=== PATIENT | female | born 1995 | race Caucasian/White ===

== ENCOUNTER 2019-09-30 18:29 | Emergency (ER) | payer OTHER, SELFPAY ==
[2019-09-30 18:31] VITALS: BP 127/77; PULSE 89; RESP 16; TEMP 36.3; O2SAT 97; BMI 32.0
--- NOTE | 2019-09-30 19:11 | CT_ITS ---
STUDY: CT ABDOMEN AND PELVIS WITHOUT CONTRAST REASON FOR EXAM: Female, 24 years old. LT FLANK PAIN RADIATION DOSAGE (If Supplied By Facility): CTDIvol = ( 12.87 ) mGy, DLP = ( 615.08 ) mGycm TECHNIQUE: Transaxial images were obtained from the dome of the diaphragm to the symphysis pubis without oral contrast, and without intravenous contrast. Sagittal and coronal images were reconstructed. Individualized dose optimization techniques were used for this CT. COMPARISON: None. FINDINGS: The visualized lung bases are unremarkable. The visualized portions of the heart are within normal limits. Normal liver. Normal gallbladder and extrahepatic biliary system. Normal spleen. Normal pancreas. Normal bilateral adrenal glands. Normal right kidney. 4 mm stone in the proximal left ureter with changes of mild acute obstructive uropathy. Multiple punctate nonobstructing left renal stones. Normal visualized stomach. Normal small intestine. Normal colon. The appendix is visualized and appears normal. Normal abdominal aorta. Normal inferior vena cava. Normal retroperitoneum. Normal urinary bladder. Normal abdominal wall. Normal osseous structures. CT/Abdomen/Pelvis without Cont IMPRESSION: 4 mm stone in the proximal left ureter with changes of mild acute obstructive uropathy. Electronically Signed: Lai Valle MD at 20:01 EDT Tel , Service support ,
[2019-09-30 19:42] LABS: Mucous, Urine 0 SEEN /hpf (<or=2+)
[2019-09-30 19:43] LABS: Color, Urine Yellow (Yellow); Glucose, Dipstick Normal (Normal); Leukocyte Esterase-Dipstick Negative /ul (Negative); Nitrite-Dipstick Negative (Negative); Occult Blood-Urine 150 /ul (Negative); Protein-Dipstick 15 mg/dl (Negative); Specific Gravity, Urine 1.025 (1.002-1.030); Urine Bilirubin Dipstick Negative (Negative); Urine Clarity Sl. Cloudy (Clear); Urine Urobilinogen Normal (Normal)
[2019-09-30 19:46] LABS: Ketone-Dipstick 150 mg/dl (Negative)
[2019-09-30 19:50] LABS: Bacteria 1+ /hpf (None Seen)
[2019-09-30 19:51] LABS: Red Blood Cells-Urine 10-25 SEEN /hpf (0-5); Squamous Epithelial Cells - UA 0-5 SEEN /hpf (5-10); White Blood Cells 0-5 SEEN /hpf (0-5)
--- NOTE | 2019-09-30 21:08 | ED.VIS.GEN ---
History of Present Illness Chief Complaint: Flank Pain Informant: Patient Onset: Today Context: Sudden Onset Timing: Continuous, Waxes and wanes Quality: Pain Location: Left flank radiating anteriorly Current Severity: Mild Maximum Severity: Severe Worsened by: Nothing Relieved by: Nothing Associated Symptoms: Mild nausea with frequency and urgency Narrative: Is a 24-year-old female who was last normal menstrual cycle was 11 days ago. She presents with acute left flank pain that radiates anteriorly. She has no history of renal ureterolithiasis. Does report mild nausea. She denies fever, chills night sweats. She does report frequency and urgency. She denies dysuria or hematuria. She denies vomiting diarrhea. She denies cardiac respiratory symptoms. There is no history of trauma. She denies allergy to pain medicines. She does report allergy to sulfa. She declined pain medicine because the pain is only a 1 or 2. Prior similar symptoms: No Recent Illness/Hospitalization: No - Past Medical History (1) No significant past medical history Status: Acute Past Medical History - Allergies and Home Meds Allergies/Adverse Reactions: Allergies Sulfa (Sulfonamide Antibiotics) Adverse Reaction (Verified 09/30/19 18:31) Upset Stomach Primary Care Physician: Care Physician,No Primary [Primary Care Provider] - Surgical History: no surgical history Lives: Spouse/ Significant Other Smoking Status: Never smoker Alcohol: Rare Drugs: None Review of Systems General: Denies: Chills, Fever, Sweats ENT: Denies: Rhinorrhea, Sore throat Cardiovascular: Denies: Chest pain, Palpitations Respiratory: Denies: Dyspnea, Cough, Dyspnea on exertion Gastrointestinal: Reports: Abdominal pain, Nausea. Denies: Vomiting, Diarrhea, Constipation, Melena, Hematochezia Genitourinary: Reports: - - Urgency. Denies: Dysuria, Hematuria, Frequency Musculoskeletal: Reports: Back pain. Denies: Myalgias, Arthralgias, Neck pain, Swelling, Extremity Pain Skin: Denies: Rash, Wounds Neurological: Denies: Headache, Numbness Hematologic: Denies: Easy bruising, Easy bleeding Physical Exam Vital Signs/Narrative: Vital Signs Temp Pulse Resp BP Pulse Ox 09/30/19 18:31 97.4 F L 89 16 127/77 H 97 Inital Vital Signs reviewed: Yes General: Well nourished, Well developed, No Acute Distress Head: Normocephalic, Atraumatic Eyes: Perrl, EOMI ENT: Moist mucous membranes, No rhinorrhea Neck: Supple, Nontender, No lymphadenopathy, No JVD Cardiovascular: Regular rate, Regular rhythm, No murmurs, Normal S1, Normal S2 Respiratory: No distress, CTA bilaterally, Chest nontender Abdomen: Soft, Nontender, Nondistended, Normal bowel sounds. Negative for: No masses Back: Nontender, Normal Inspection. Negative for: CVA tenderness Extremities: Nontender, No edema Skin: Normal color, No rash Neurological: Alert, Oriented x3, Cranial nerves II-XII grossly intact, Normal Strength, Normal Sensation Psychological: Normal affect, Normal Mood Diagnostic/Tx/Re-eval Impressions Abdomen/Pelvis CT 09/30/19 19:11 IMPRESSION: 4 mm stone in the proximal left ureter with changes of mild acute obstructive uropathy. Electronically Signed: Lai Valle MD at 20:01 EDT Tel , Service support , 09/30/19 19:11 Abdomen/Pelvis without Cont [CT] Stat Laboratory Results 09/30/19 18:41 Urine Color Yellow Urine Clarity Sl. Cloudy Urine pH 6.0 Ur Specific [place] 1.025 Urine Protein 15 H Urine Glucose (UA) Normal Urine Ketones 150 H Urine Occult Blood 150 H Urine Nitrite Negative Urine Bilirubin Negative Urine Urobilinogen Normal Ur Leukocyte Esterase Negative Urine RBC 10-25 SEEN Urine WBC 0-5 SEEN Ur Squamous Epith Cells 0-5 SEEN Urine Bacteria 1+ Urine Mucus 0 SEEN She does have an obstructing 4 mm proximal left ureteral stone. Urine reveals bacteria without pyuria. There is microscopic hematuria. Culture was sent and patient received a dose of Rocephin and discharged with prescription for cephalexin. She was referred to Dr. Aly who is on-call for urology. - Medical Decision Making Presents with abrupt onset of left flank pain. Need to assess for obstructing ureteral stone, large renal stone, urinary tract infection versus other abdominal etiology. Patient declined pain medicine. Because she has bacteria she was given a dose of Rocephin and urine culture was sent. She was discharged with prescription for cephalexin. ED Disposition - Plan for ED Patient: Disposition: Home or Assisted Living Diagnosis: Calculus of proximal left ureter, Hydronephrosis of left kidney, Bacteriuria Instructions: ED Renal Stone w Colic Prescriptions: Cephalexin [Keflex] 500 mg PO 4X/DAY #20 cap Transmission Status: Pending to [id number] Referrals: Care Physician,No Primary [Primary Care Provider] - Magalis Aly MD [STAFF PHYSICIAN] - 3-5 Days Additional Instructions: Your pain returns take 4 ibuprofen tablets every 8 hours. If you develop a temperature greater than 100 and or have shaking chills return to the emergency department immediately
[2019-09-30 21:14] VITALS: BP 125/77; PULSE 75; RESP 18; O2SAT 97
[2019-09-30] MEDS: Ceftriaxone 1 GM/50 ML BAG IV (21:20)
== END 2019-09-30 22:00 | disposition home or self-care (01) ==
PROVIDERS: Emergency Provider Emergency Medicine
DX: N13.2 Hydronephrosis with renal and ureteral calculous obstruction (principal); R82.71 Bacteriuria; R31.29 Other microscopic hematuria; Z88.2 Allergy status to sulfonamides
CPT/HCPCS: 74176; 81001; 87086; 87088; 99283; J7050; A4216

== ENCOUNTER → 2019-11-11 11:18 | Outpatient (CLI) | payer OTHER, SELFPAY ==
--- NOTE | 2019-11-11 11:23 | US_ITS ---
STUDY: RENAL ULTRASOUND - COMPLETE REASON FOR EXAM: Female, 24 years old. Flank pain TECHNIQUE: Ultrasound evaluation of the kidneys was performed with real-time and static zheng-scale imaging. COMPARISON: None. FINDINGS: RIGHT KIDNEY: Normal location of the right kidney, which is normal in size. The right kidney measures 10.6 x 4.5 x 3.8 cm. There is a normal cortex of the right kidney. The renal cortex measures 1.1 cm. There is no right renal mass or cyst. There are no right renal calculi. There is no right hydronephrosis. DISTAL RIGHT URETER: There is non-visualization of the distal right ureter. There is no demonstrated right ureterovesical junction calculus. There is a visualized right ureteral jet. LEFT KIDNEY: Normal location of the left kidney, which is normal in size. The left kidney measures 10.4 x 5.1 x 4.2 cm. There is a normal cortex of the left kidney. The renal cortex measures 1.3 cm. There is no left renal mass or cyst. There are no left renal calculi. There is an extra-renal pelvis of the left kidney. There is no distention of the renal calyces. DISTAL LEFT URETER: There is non-visualization of the distal left ureter. There is no demonstrated left ureterovesical junction calculus. There is a visualized left ureteral jet. AORTA: There is no elongation or tortuosity of the abdominal aorta. I.V.C.: The IVC is patent. BLADDER: The bladder is incompletely distended US/Kidney and Bladder IMPRESSION: No suspicious sonographic findings, incidental note is made of an extrarenal pelvis of the left kidney Electronically Signed: Anthony Thomas MD at 12:14 EDT , Service support ,
== END ==
PROVIDERS: Referring Provider Urology; Visit Provider Urology
DX: N20.0 Calculus of kidney (principal)
CPT/HCPCS: 76770

== ENCOUNTER 2019-11-29 16:14 | Emergency (ER) | payer OTHER, SELFPAY ==
[2019-11-29 16:15] VITALS: BP 152/94; PULSE 79; RESP 18; TEMP 36.9; O2SAT 98; BMI 32.7
[2019-11-29 16:42] LABS: Mucous, Urine 0 SEEN /hpf (<or=2+)
[2019-11-29 16:45] LABS: Color, Urine Yellow (Yellow); Glucose, Dipstick Normal (Normal); Ketone-Dipstick Negative (Negative); Leukocyte Esterase-Dipstick 25 /ul (Negative); Nitrite-Dipstick Negative (Negative); Occult Blood-Urine 250 /ul (Negative); Protein-Dipstick 30 mg/dl (Negative); Specific Gravity, Urine 1.015 (1.002-1.030); Urine Bilirubin Dipstick Negative (Negative); Urine Clarity Cloudy (Clear); Urine Urobilinogen Normal (Normal)
[2019-11-29 16:51] LABS: Bacteria 1+ /hpf (None Seen); Red Blood Cells-Urine > 100 SEEN /hpf (0-5); Squamous Epithelial Cells - UA 5-10 SEEN /hpf (5-10); White Blood Cells 5-10 SEEN /hpf (0-5)
--- NOTE | 2019-11-29 17:55 | US_ITS ---
STUDY: RENAL ULTRASOUND - COMPLETE REASON FOR EXAM: Female, 24 years old. FLANK PAIN, HX OF KIDNEY STONES TECHNIQUE: Ultrasound evaluation of the kidneys was performed with real-time and static zheng-scale imaging. COMPARISON: Previous study of 11/11/2019 FINDINGS: RIGHT KIDNEY: Normal location of the right kidney, which is normal in size. The right kidney measures 11.1 x 4.0 x 4.1 cm. There is a normal cortex of the right kidney. The renal cortex measures 1.1 cm. There is no right renal mass or cyst. There are no right renal calculi. There is no right hydronephrosis. DISTAL RIGHT URETER: There is non-visualization of the distal right ureter. There is no demonstrated right ureterovesical junction calculus. There is a visualized right ureteral jet. LEFT KIDNEY: Normal location of the left kidney, which is normal in size. The left kidney measures 11.4 x 4.8 x 4.4 cm. There is a normal cortex of the left kidney. The renal cortex measures 1.3 cm. There is no left renal mass or cyst. There are no left renal calculi. There is an extra-renal pelvis of the left kidney. There is no distention of the renal calyces. DISTAL LEFT URETER: There is dilatation of the proximal left ureter. There is non-visualization of the distal left ureter. There is no demonstrated left ureterovesical junction calculus. There is a visualized left ureteral jet. BLADDER: The distended urinary bladder has a volume of 191 ml. There is a normal wall thickness of the distended urinary bladder. Bladder wall thickness is 1.8 mm. There is no demonstrated mass within the urinary bladder. There are no demonstrated bladder calculi. US/Kidney and Bladder IMPRESSION: There is mild dilatation of a left extrarenal pelvis. There is dilatation of the proximal left ureter. The distal left ureter was not visualized. The right kidney appears normal. If clinically indicated, CT of the abdomen and pelvis without contrast may be helpful for further evaluation. Electronically Signed: Mert Ashton MD at 19:17 EDT , Service support ,
[2019-11-29] MEDS: 0.9% Normal Saline 1,000 ML 1000 ML IV (18:19)
[2019-11-29] MEDS: Ketorolac 30 MG/ML Syringe IV (18:19)
[2019-11-29 18:32] LABS: Absolute Lymphocyte Count 1.19 X10^3/uL (0.83-4.51); Absolute Neutrophil Count 10.6 X10^3/uL (2.0-7.7); Basophil# 0.04 X10^3/uL; Basophil% 0.3 % (0-1); Eosinophil# 0.06 X10^3/uL; Eosinophils% 0.5 % (0-5); Hematocrit 44.7 % (37-47); Hemoglobin 14.6 g/dL (12.0-15.0); Lymphocyte # 1.19 X10^3/ul (4.0); Lymphocyte % 9.1 % (19-41); Mean Corp Hgb Conc 32.7 g/dL (32-36); Mean Corpuscular Hgb 27.4 pg (27.0-32.0); Mean Corpuscular Volume 83.9 fL (81-99); Mean Platelet Vol. 8.9 fl (6.2-12.0); Monocyte# 1.08 X10^3/uL; Monocyte% 8.3 % (0-10); NRBC Flagged by Analyzer 0 % (0-5); Neutrophil # 10.62 X10^3/uL (2.7-7.7); Neutrophil % 81.4 % (47-70); Platelet Count 326 K/mm3 (150-450); RBC Distribution Width SD 42.4 fl (35.1-43.9); Red Blood Count 5.33 M/mm3 (4.2-5.4)
[2019-11-29 18:41] LABS: Anion Gap 6 (5-15); BUN 12 mg/dL (7-18); BUN/Creat Ratio 11.4 RATIO (10-20); Calcium,Total 9.1 mg/dL (8.5-10.1); Chloride 107 mmol/L (98-107); Creatinine, Serum 1.05 mg/dL (0.55-1.02); EST Glomerular Filtration Rate 69 mL/min (>60); Est Glom Filt Rate - Afr Amer 83 mL/min (>60); Estimated Creatinine Clearance 68.93 ml/min; Glucose 85 mg/dL (74-106); Potassium 3.3 mmol/L (3.5-5.1); Sodium Level 142 mmol/L (136-145)
[2019-11-29 18:46] LABS: hCG Titer Quant., Serum < 1 mIU/mL (1-3)
--- NOTE | 2019-11-29 19:00 | RAD_ITS ---
STUDY: X-RAY - ABDOMEN/PELVIS REASON FOR EXAM: Female, 24 years old. left flank pain, hx kidney stones in the past TECHNIQUE: Two AP supine views of the abdomen and pelvis. COMPARISON: None. FINDINGS: Normal visualized lung bases. There is an unremarkable bowel gas pattern. There is no demonstrated free abdominal air. The visualized liver, spleen and kidneys are grossly normal in size and morphology. There is an irregularly margined calcification of the mid left pelvis measuring 4.4 mm which may represent distal left ureterolithiasis. Normal visualized osseous structures. RAD/Abdomen Single View (Portable) IMPRESSION: 4.4 mm irregular margin calcification of the mid left pelvis which may represent distal left ureterolithiasis. There is no evidence of ileus or obstruction. Electronically Signed: Mert Ashton MD at 19:17 EDT , Service support ,
--- NOTE | 2019-11-29 19:57 | ED.DCSUM_ITS ---
- ER Visit Summary Date of Service: 11/29/19 Chief Complaint: Left flank pain History of Present Illness: The patient is a 24 F who presents with left flank pain that became worse today. Patient states she has a history of kidney stones. Patient states that she had a CT scan done approximately 2 months ago which showed kidney stones. Patient states her pain is worse over her left flank. Patient states nothing makes it better or worse. Patient admits to an episode of nausea and vomiting today. Patient denies any fevers or chills. Patient admits to some hematuria but denies any dysuria. Physical Examination: Vital signs are stable. Patient is afebrile. Patient is in no acute distress. Oral mucosa is pink and moist. Neck is supple. Trachea is midline. There is no JVD noted. Heart was regular rate and rhythm. Lungs are clear and equal bilaterally. Abdomen is soft. Bowel sounds are normal. There is mild left CVA tenderness. There is no rebound or guarding noted. Skin is warm dry. Cranial nerves II through XII are intact. There are no focal motor or sensory deficits noted. Extremities are intact. There is no calf tenderness or edema. Test Results: CBC shows a mild leukocytosis of 13.0. Basic metabolic profile was essentially within normal limits. Urinalysis shows occult blood of 250 with greater than 100 red blood cells. There were 5-10 white blood cells and 5-10 epithelial cells. KUB of the abdomen was obtained. There is approximately 4.4 mm calcification in the left mid pelvis. Ultrasound of the kidney and bladder was obtained. There is left hydroureter and hydronephrosis. These were interpreted by the radiologist and reviewed by myself. Emergency Department Course and Treatment: Patient was given IV fluids. Patient was given a dose of Toradol here. Patient was feeling better on reevaluation. Patient was advised of her findings. Patient was instructed drink plenty of fluids. Patient was given a prescription for short course of [place] to take as needed. Patient was instructed to follow-up with her primary care physician and urologist in 5 to 7 days. Patient understood and was agreeable with the plan. All questions were answered. Disposition: Discharge home Impression: Left distal ureteral calculus This note was generated with [employer] dictation software. It may contain incorrect words, spelling, and punctuation that were not noted in review of the chart prior to signing ED Disposition - Plan for ED Patient: Disposition: Home or Assisted Living Diagnosis: Calculus of distal left ureter Instructions: ED Renal Stone w Colic Prescriptions: Hydrocodone Bitart/Apap 5-325 [[place] 5MG-325MG] 1 tab PO Q6H PRN PRN 3 Days #10 tab PRN Reason: Pain Prescription Printed Referrals: Magalis Aly MD [STAFF PHYSICIAN] -
[2019-11-29 20:17] VITALS: BP 105/88; PULSE 74; RESP 16; O2SAT 99
== END 2019-11-29 20:18 | disposition home or self-care (01) ==
PROVIDERS: Emergency Provider Emergency Medicine
DX: N20.2 Calculus of kidney with calculus of ureter (principal); Z87.442 Personal history of urinary calculi
CPT/HCPCS: 74018; 76770; 80048; 81001; 84702; 85025; 96374; 99283; J7030; A4216

== ENCOUNTER 2019-12-28 05:52 | Day surgery (SDC) | payer OTHER, SELFPAY ==
[2019-12-28 06:20] VITALS: BP 112/67; PULSE 77; RESP 16; TEMP 37.4; O2SAT 99; BMI 32.4
[2019-12-28 06:22] LABS: Internal QC Validated? YES +Cl - CLEAR BKGD; Pregnancy, Urine Negative Negative
[2019-12-28] MEDS: Lactated Ringers 1,000 ML 100 ML IV ×2 (06:47→08:29)
[2019-12-28] MEDS: Lubricating Jelly 60 GM Tube 30 GM TOPICAL (07:30)
[2019-12-28] MEDS: Cefazolin 2 GM in 0.9% Normal Saline 100 ML IV (07:30)
[2019-12-28 08:20] VITALS: BP 112/67; BP 114/77; PULSE 83; RESP 18; TEMP 36.9; O2SAT 93
--- NOTE | 2019-12-28 08:29 | DCINST_ITS ---
Discharge Diet: No Restrictions Discharge Activity: May not drive while taking narcotic pain medications. Call your doctor if you observe: Fever of 101 or Higher, Inability to urinate, Inability to have a bowel movement, Uncontrolled pain Allergies/Adverse Reactions: Allergies Sulfa (Sulfonamide Antibiotics) Adverse Reaction (Verified 12/21/19 12:30) Upset Stomach Medications to take at Discharge Multivit-Min/Iron/Folic Acid/K [Multi For Her Softgel] 1 ea PO DAILY 09/30/19 Magnesium Amino Acid Chelate [Magnesium] 200 mg PO DAILY 12/21/19 Cephalexin [Keflex] 500 mg PO Q12 3 Days #6 cap 12/28/19 Oxycodone HCl/Acetaminophen [Percocet 5/325] 2 tab PO Q8H PRN PRN 7 Days #20 tab 12/28/19 Phenazopyridine HCl [Pyridium] 200 mg PO TID PRN PRN 7 Days #30 tab 12/28/19 Primary Care Physician: Care Physician,No Primary [Primary Care Provider] - Test Results: Test results from this visit will be discussed in further detail at your follow- up appointment, if applicable. Please Follow Up With: Magalis Aly MD When: call for appt for stent removal Proposed Discharge Date: 12/28/19
[2019-12-28 08:30] VITALS: BP 109/78; BP 112/67; PULSE 78; RESP 16; O2SAT 96
--- NOTE | 2019-12-28 08:31 | OP.PCM_ITS ---
Problem List (1) Ureteral stone with hydronephrosis Status: Acute Report of Operation Date of Procedure: 12/28/19 Pre-Operative Diagnosis: Left ureteral calculus with hydronephrosis Post-Operative Diagnosis: Same Surgery/Procedure Performed:: Cystoscopy, left ureteroscopy, holmium laser lithotripsy, stone basket extraction, left ureteral stent insertion Type of Anesthesia:: General Specimen's removed: Stone fragments sent for analysis Description of Procedure: The patient is a 24-year-old female who was diagnosed with a left ureteral calculus several weeks ago. On repeat imaging there was resolution of her hydronephrosis and her pain resolved. The pain subsequently returned and repeat imaging was obtained revealing that the stone had moved distally but not passed. Informed consent was obtained and the patient desired to proceed with surgical intervention. Discussion was had regarding the risks of COVID-19. Patient was taken to the operating room and placed on the operating room table. Anesthesia monitored the head, neck, airway, IV access and vital signs throughout the case. Once anesthesia was appropriately administered, the patient was placed into dorsal lithotomy position was prepped and draped in usual sterile fashion. A cystourethroscopy through the urethra under direct visualization was performed. There were no masses, areas of erythema or lesions identified. There were no foreign bodies on the floor of the bladder. The left ureteral orifice was identified and intubated with a 0.035 Glidewire. I could feel the stone at the ureteral orifice and using the semirigid ureteroscope, the stone was visualized. I was unable to retrieve it with the basket and the laser was used to break the stone into small fragments several of which were retrieved with a basket and sent for analysis. The stone was much larger than anticipated given the findings on CT scan. I was able to scope past the area of the stone and retrieve one fragment, and no fragments remained in the distal ureter. At this time a 6 [place] 24 cm JJ stent was inserted over the Glidewire without difficulty. The patient's bladder was emptied and the case was terminated. The patient tolerated the procedure well and there were no complications. She was taken to the recovery room in good condition. Grafts/Implants Used: 6 x 24 JJ stent - Complications None - Admit VTE Documentation VTE Present on Admission: Yes VTE Mechan Device Prophylaxis: SCD's VTE Pharm Prophylaxis ordered?: No Reason prophylaxis not ordered:: Treatment Not Indicated
[2019-12-28 08:45] VITALS: BP 112/67; BP 121/77; PULSE 79; RESP 16; O2SAT 100
[2019-12-28 08:53] VITALS: BP 112/67; BP 118/78; PULSE 75; RESP 16; TEMP 36.6; O2SAT 99
[2019-12-28 10:33] VITALS: BP 112/67; BP 119/79; PULSE 81; RESP 18; TEMP 36.4; O2SAT 99
== END 2019-12-28 10:35 | disposition home or self-care (01) ==
LOC: SDC 05:52 → AC 05:52
PROVIDERS: Anesthesiology; Referring Provider Urology; Visit Provider Urology
PROC: 0TJ98ZZ Inspection of Ureter, Via Natural or Artificial Opening Endoscopic (ICD-10-PCS; CPT 52352; principal; 2019-12-28 07:20)
DX: N13.2 Hydronephrosis with renal and ureteral calculous obstruction (principal); Z11.59 Encounter for screening for other viral diseases
CPT/HCPCS: 52356; 76000; 81025; 82360; 87635; C9803; J7120; C2617; J2405; U0003

== ENCOUNTER 2020-05-15 15:16 | Emergency (ER) | payer BC, SELFPAY ==
[2020-05-15 15:18] VITALS: BP 120/73; PULSE 123; RESP 18; TEMP 36.6; O2SAT 99; BMI 32.5
--- NOTE | 2020-05-15 15:32 | CT_ITS ---
STUDY: CT ABDOMEN AND PELVIS WITHOUT CONTRAST REASON FOR EXAM: Female, 25 years old. LBP, LT FLANK PAIN X 5 DAYS. H/O [place] W/ STENT. and quot;POPPING and quot; SOUND RADIATION DOSAGE (If Supplied By Facility): CTDIvol = ( 15.31 ) mGy, DLP = ( 814.70 ) mGycm TECHNIQUE: Transaxial images were obtained from the dome of the diaphragm to the symphysis pubis without oral contrast, and without intravenous contrast. Sagittal and coronal images were reconstructed. Individualized dose optimization techniques were used for this CT. COMPARISON: None. FINDINGS: The visualized lung bases are unremarkable. The visualized portions of the heart are within normal limits. Normal liver. Normal gallbladder and extrahepatic biliary system. Normal spleen. Normal pancreas. Normal bilateral adrenal glands. Normal right kidney. There is mild prominence of the left renal pelvis with some stranding of surrounding fat but no renal or ureteral stone. Possibilities include recently passed stone or left-sided pyelonephritis. Normal visualized stomach. Normal small intestine. Normal colon. The appendix is visualized and appears normal. Normal abdominal aorta. Normal inferior vena cava. Normal retroperitoneum. Normal urinary bladder. Normal abdominal wall. Normal osseous structures. CT/Abdomen/Pelvis without Cont IMPRESSION: Suspect left-sided recently passed stone or pyelonephritis. No current renal or ureteral stone. Electronically Signed: Chadwick Buckner MD at 16:44 EST Tel , Service support ,
--- NOTE | 2020-05-15 15:32 | ED.DCSUM_ITS ---
History of Present Illness Chief Complaint: Back Narrative: This patient is a 25-year-old female who presents with lower back pain. This began 5 days ago. She states she was getting up off the ground and felt a pop in her lower back. She complains of midline lower back pain since that time. She then began to have some pain on her left flank. She was seen in urgent care. They checked her urine and said she was dehydrated and that it was possible she had either kidney stone or UTI. They put her on antibiotics and send off a culture which she does not yet know the results of. She also complains of some mild lower abdominal pain but is currently also on her menstrual period and attributes it to that. She has no dysuria frequency or urgency. She denies any fevers nausea vomiting or diarrhea. Past Medical History - Allergies and Home Meds Allergies/Adverse Reactions: Allergies Sulfa (Sulfonamide Antibiotics) Adverse Reaction (Verified 05/15/20 15:18) Upset Stomach Primary Care Physician: Care Physician,No Primary [Primary Care Provider] - Past Medical History: None Surgical History: no surgical history Smoking Status: Never smoker Review of Systems All systems negative except as indicated General: Denies: Fever Eyes: Denies: Visual changes - bilaterally ENT: Denies: Bilateral ear pain Cardiovascular: Denies: Chest pain Respiratory: Denies: Dyspnea Gastrointestinal: Reports: Abdominal pain. Denies: Nausea, Vomiting Musculoskeletal: Reports: Back pain. Denies: Extremity Pain Skin: Denies: Rash Neurological: Denies: Headache, Weakness, Parasthesia Hematologic: Denies: Easy bruising Allergy: Denies: Uticaria Physical Exam Vital Signs/Narrative: Vital Signs Temp Pulse Resp BP Pulse Ox 05/15/20 15:18 98 F 123 H 18 120/73 99 Inital Vital Signs reviewed: Yes General: Well nourished Head: Normocephalic Eyes: EOMI ENT: Moist mucous membranes Neck: Supple Cardiovascular: Regular rhythm, Tachycardia Respiratory: No distress, CTA bilaterally Abdomen: Soft, Nontender, Nondistended Back: - - Patient has midline lower lumbar tenderness she does not have CVA tenderness Skin: Normal color Neurological: Alert Psychological: Normal affect Diagnostic/Tx/Re-eval Impressions Abdomen/Pelvis CT 05/15/20 15:32 IMPRESSION: Suspect left-sided recently passed stone or pyelonephritis. No current renal or ureteral stone. Electronically Signed: Chadwick Buckner MD at 16:44 EST Tel , Service support , 05/15/20 15:32 Abdomen/Pelvis without Cont [CT] Stat Laboratory Results 05/15/20 05/15/20 05/15/20 15:42 15:55 15:55 WBC 11.3 H RBC 4.88 Hgb 12.9 Hct 39.5 MCV 80.9 L MCH 26.4 L MCHC 32.7 RDW Std Deviation 39.5 RDW Coeff of Haily 13.3 Plt Count 254 MPV 8.9 Immature Gran % (Auto) 0.300 Neut % (Auto) 77.4 H Lymph % (Auto) 8.3 L [place] % (Auto) 13.4 H Eos % (Auto) 0.2 Baso % (Auto) 0.4 Absolute Neuts (auto) 8.8 H Absolute Lymphs (auto) 0.94 Nucleated RBC % 0 Differential Comment Diff Path Review May foll Platelet Estimate ADEQUATE RBC Morphology NORM C+C Sodium 137 Potassium 3.3 L Chloride 105 Carbon Dioxide 24.0 Anion Gap 8 BUN 8 Creatinine 0.74 Estim Creat Clear Calc 96.97 Est GFR (MDRD) Af Amer 123 Est GFR (MDRD) Non-Af 102 BUN/Creatinine Ratio 10.8 Glucose 103 Calcium 8.7 Urine Color Yellow Urine Clarity Sl. Cloudy Urine pH 6.5 Ur Specific [place] 1.010 Urine Protein 30 H Urine Glucose (UA) Normal Urine Ketones 5 H Urine Occult Blood 250 H Urine Nitrite Negative Urine Bilirubin Negative Urine Urobilinogen 1 H Ur Leukocyte Esterase 100 H Urine RBC 0-5 SEEN Urine WBC 5-10 SEEN Ur Squamous Epith Cells 0-5 SEEN Urine Bacteria RARE Urine Mucus 0 SEEN Urine Test Negative - Medical Decision Making UA shows 5-10 WBCs. Mild leukocytosis at 11.3. Renal function is normal. CT of the abdomen and pelvis was obtained. This shows mild prominence of the left renal pelvis and some fat stranding. The differential would include pyelonephritis or recently passed stone. Patient is currently on oral antibiotics and had a urine culture sent already from her previous urgent care visit. At this time she was advised just to continue her oral antibiotics and follow-up as an outpatient. No indication for hospitalization. No apparent surgical pathology. Does understand return for new or worsening symptoms. Patient discharged. ED Disposition - Plan for ED Patient: Disposition: Home or Assisted Living Diagnosis: Back pain, UTI (urinary tract infection) Instructions: ED Back Sprain/Strain, ED Bladder Infection, Female (Adult) Referrals: Care Physician,No Primary [Primary Care Provider] -
[2020-05-15 15:53] LABS: Mucous, Urine 0 SEEN /hpf (<or=2+)
[2020-05-15 15:58] LABS: Color, Urine Yellow (Yellow); Glucose, Dipstick Normal (Normal); Ketone-Dipstick 5 mg/dl (Negative); Leukocyte Esterase-Dipstick 100 /ul (Negative); Nitrite-Dipstick Negative (Negative); Occult Blood-Urine 250 /ul (Negative); Protein-Dipstick 30 mg/dl (Negative); Urine Bilirubin Dipstick Negative (Negative); Urine Clarity Sl. Cloudy (Clear); Urine Urobilinogen 1 mg/dl (Normal); Urine pH 6.5 (5.0 - 8.0)
[2020-05-15 16:04] LABS: White Blood Cells 5-10 SEEN /hpf (0-5)
[2020-05-15 16:05] LABS: Bacteria RARE /hpf (None Seen); Red Blood Cells-Urine 0-5 SEEN /hpf (0-5); Squamous Epithelial Cells - UA 0-5 SEEN /hpf (5-10)
[2020-05-15 16:06] LABS: Internal QC Validated? YES +Cl - CLEAR BKGD; Pregnancy, Urine Negative Negative
[2020-05-15 16:10] LABS: Absolute Lymphocyte Count 0.94 X10^3/uL (0.83-4.51); Absolute Neutrophil Count 8.8 X10^3/uL (2.0-7.7); Basophil# 0.04 X10^3/uL; Basophil% 0.4 % (0-1); Eosinophil# 0.02 X10^3/uL; Eosinophils% 0.2 % (0-5); Hematocrit 39.5 % (37-47); Hemoglobin 12.9 g/dL (12.0-15.0); Lymphocyte # 0.94 X10^3/ul (4.0); Lymphocyte % 8.3 % (19-41); Mean Corp Hgb Conc 32.7 g/dL (32-36); Mean Corpuscular Hgb 26.4 pg (27.0-32.0); Mean Corpuscular Volume 80.9 fL (81-99); Mean Platelet Vol. 8.9 fl (6.2-12.0); Monocyte# 1.51 X10^3/uL; Monocyte% 13.4 % (0-10); NRBC Flagged by Analyzer 0 % (0-5); Neutrophil # 8.75 X10^3/uL (2.7-7.7); Neutrophil % 77.4 % (47-70); POSITIVE DIFFERENTIAL YES; Platelet Count 254 K/mm3 (150-450); RBC Distribution Width CV 13.3 % (11.6-14.6); RBC Distribution Width SD 39.5 fl (35.1-43.9); Red Blood Count 4.88 M/mm3 (4.2-5.4); White Blood Count 11.3 K/mm3 (4.4-11.0)
[2020-05-15 16:18] LABS: Differential Indicated SCAN CRITERIA MET
[2020-05-15 16:27] LABS: Anion Gap 8 (5-15); BUN 8 mg/dL (7-18); BUN/Creat Ratio 10.8 RATIO (10-20); Calcium,Total 8.7 mg/dL (8.5-10.1); Chloride 105 mmol/L (98-107); Creatinine, Serum 0.74 mg/dL (0.55-1.02); EST Glomerular Filtration Rate 102 mL/min (>60); Est Glom Filt Rate - Afr Amer 123 mL/min (>60); Estimated Creatinine Clearance 96.97 ml/min; Glucose 103 mg/dL (74-106); Potassium 3.3 mmol/L (3.5-5.1); Sodium Level 137 mmol/L (136-145)
[2020-05-15 16:50] LABS: Platelet Estimate ADEQUATE (ADEQ); Red Cell Morphology NORM C+C NORMAL (NORM C&C)
[2020-05-15 17:09] VITALS: BP 127/83; PULSE 71; RESP 16; O2SAT 99
[2020-05-16 12:45] LABS: Pathologist Review Reviewed
== END 2020-05-15 17:09 | disposition home or self-care (01) ==
PROVIDERS: Emergency Provider Emergency Medicine
DX: M54.5 Low back pain (principal); N39.0 Urinary tract infection, site not specified
CPT/HCPCS: 74176; 80048; 81001; 81025; 85025; 99284

== ENCOUNTER → 2023-03-12 | Outpatient (CLI) | payer BC, SELFPAY ==
[2023-03-12 17:06] LABS: Absolute Lymphocyte Count 2.34 X10^3/uL (0.83-4.51); Absolute Neutrophil Count 5.5 X10^3/uL (2.0-7.7); Basophil# 0.07 X10^3/uL; Basophil% 0.8 % (0-1); Hematocrit 45.6 % (37-47); Hemoglobin 14.7 g/dL (12.0-15.0); Lymphocyte # 2.34 X10^3/ul (0.83-4.51); Lymphocyte % 27.5 % (19-41); Mean Corp Hgb Conc 32.2 g/dL (32-36); Mean Corpuscular Hgb 26.3 pg (27.0-32.0); Mean Corpuscular Volume 81.6 fL (81-99); Mean Platelet Vol. 9.1 fl (6.2-12.0); Monocyte# 0.58 X10^3/uL; Monocyte% 6.8 % (0-10); NRBC Flagged by Analyzer 0 % (0-5); Neutrophil # 5.48 X10^3/uL (2.7-7.7); Neutrophil % 64.5 % (47-70); Platelet Count 338 K/mm3 (150-450); RBC Distribution Width CV 13.3 % (11.6-14.6); RBC Distribution Width SD 38.8 fl (35.1-43.9); Red Blood Count 5.59 M/mm3 (4.2-5.4); White Blood Count 8.5 K/mm3 (4.4-11.0)
[2023-03-12 17:16] LABS: AST(SGOT) 19 U/L (15-37); Alanine Aminotransfer ALT/SGPT 25 U/L (13-56); Albumin, Serum 3.9 g/dL (3.2-5.0); Alkaline Phosphatase 78 U/L (45-117); Anion Gap 5 (5-15); BUN 12 mg/dL (7-18); BUN/Creat Ratio 14.7 RATIO (10-20); Calcium,Total 9.3 mg/dL (8.5-10.1); Chloride 104 mmol/L (98-107); Creatinine, Serum 0.82 mg/dL (0.55-1.02); EST Glomerular Filtration Rate 89 mL/min (>60); Est Glom Filt Rate - Afr Amer 108 mL/min (>60); Globulin 3.8 g/dL (2.2-4.2); Glucose 81 mg/dL (74-106); Potassium 4.1 mmol/L (3.5-5.1); Protein, Total 7.7 g/dL (6.4-8.2); Sodium Level 137 mmol/L (136-145)
[2023-03-12 17:42] LABS: T4 Free Direct 1.06 ng/dL (0.76-1.46); Thyroid Stim Hormone (TSH) 2.12 uIU/mL (0.358-3.74)
[2023-03-15 07:07] LABS: Thyroid Peroxidase AB 16 IU/mL (0-34)
== END | disposition home or self-care (01) ==
LOC: BIMLAB 15:17
PROVIDERS: PCP Internal Medicine; Referring Provider Internal Medicine; Visit Provider Internal Medicine
DX: E66.9 Obesity, unspecified (principal); E28.2 Polycystic ovarian syndrome; Z13.29 Encounter for screening for other suspected endocrine disorder
CPT/HCPCS: 36415; 80053; 84439; 84443; 85025; 86376

== ENCOUNTER → 2023-06-14 | Outpatient (CLI) | payer BC, SELFPAY ==
--- OUTSIDE RECORDS SUMMARY | 2023-06-14 11:10 | XMS RPT_ITS | CCD ---
Author Name Unknown Address [address] [place] [address] Organization [facility] Care Team Providers Care Director Of Nurses Registry Name Role Phone Luba Aguilar Unavailable Unavailable Deshaun Bro MD Primary Care Provider Deshaun Bro MD Primary Care Provider [phone] Unavailable Primary Care Provider Unavailabl e KATY GUILLEN Attending Unavailable DESHAUN BRO Primary Care Unavailable DESHAUN BRO Primary Care Unavailable VEERAMACDESTINEYENI, HOLLY Referring Unavailab le VEOLGA, ERLINALI Referring Unavailab DESHAUN Woodruff Primary Care Unavailable VEERAMARICARMEN, HOLLY Referring Unavailab DESHAUN Woodruff Primary Care Unavailable VEOLGA, HOLLY Attending Unavailab DESHAUN Woodruff Primary Care Unavailable DESHAUN BRO Primary Care Unavailable ALICIA REHMAN Referring Unavail able DESHAUN BRO Primary Care Unavailable ERIC WIGGINS Attending Unavailable ALICIA REHMAN Referring Unavail able DESHAUN BRO Primary Care Unavailable ALICIA REHMAN Attending Unavail able DESHAUN BRO Primary Care Unavailable KATY GUILLEN Referring Unavailable Allergies Allergy Classification Reported Allergen(s) Allergy Type Date of Onset Reaction(s) Facility (12 sources) Sulfonamides (Antibiotic); Translations: [SULFA (SULFONAMIDE ANTIBIOTICS)] Drug Intolerance 8 Vomiting [facility] Work Phone: Medications Current Medications Medication Drug Class(es) Dates Sig (Normalized) Sig (Original) amoxicillin 875 mg / clavulanate 125 mg oral tablet (1 source) Penicillin-class Antibacterial Start: 02-24-2022 End: 03-03-2022 take 1 tablet by mouth twice daily amoxicillin-clav ulanic acid (AUGMENTIN) 875-125 mg per tablet Take 1 tablet by mouth twice daily for 7 days. 14 tablet 0 02/24/2022 03/03/2022 Active Completed/Discontinued Medications Medication Drug Class(es) Dates Sig (Normalized) Sig (Original) Lactobacillus acidophilus (11 sources) Lactobacillus acidophilus (PROBIOTIC ORAL) Take by mouth. All natural probiotic Vital savannah 0 Active Problems Active Problems Problem Classification Problem Date Documented Date Episodic/Chronic Cardiac dysrhythmias (3 sources) Tachycardia; Translations: [Tachycardia, unspecified] Onset: 05-31-2022 Episodic Other endocrine disorders (10 sources) Polycystic ovary syndrome; Translations: [Polycystic ovarian syndrome] Onset: 03-19-2022 Chronic Other endocrine disorders (1 source) Polycystic ovarian syndrome; Translations: [PCOS (polycystic ovarian syndrome)] Onset: 03-19-2022 Chronic Other female genital disorders (2 sources) Abnormal uterine bleeding; Translations: [Other specified abnormal uterine and vaginal bleeding] Chronic Other female genital disorders (1 source) Abnormal uterine and vaginal bleeding, unspecified; Translations: [Abnormal uterine bleeding (AUB)] Onset: 02-11-2022 Chronic Other female genital disorders (1 source) History of gynecological disorder; Translations: [Personal history of other diseases of the female genital tract] Episodic Other nutritional; endocrine; and metabolic disorders (9 sources) Obesity; Translations: [Other obesity due to excess calories] Onset: 03-19-2022 Chronic Other nutritional; endocrine; and metabolic disorders (1 source) Other obesity due to excess calories; Translations: [Class 2 obesity due to excess calories without serious comorbidity with body mass index (BMI) of 35.0 to 35.9 in adult] Onset: 03-19-2022 Chronic Other nutritional; endocrine; and metabolic disorders (1 source) Body mass index (BMI) 35.0-35.9, adult; Translations: [Class 2 obesity due to excess calories without serious comorbidity with body mass index (BMI) of 35.0 to 35.9 in adult] Onset: 03-19-2022 Chronic Otitis media and related conditions (1 source) Acute left otitis media; Translations: [Otitis media, unspecified, left ear] Episodic Viral infection (1 source) Viral disease; Translations: [Viral infection, unspecified] Episodic Past or Other Problems Problem Classification Problem Date Documented Da te Episodic/Chronic Genitourinary symptoms and ill-defined conditions (1 source) Dysuria; Translations: [DYSURIA] Onset: 07-17-2016 Episodic Other screening for suspected conditions (not mental disorders or infectious disease) (3 sources) Increased testosterone level; Translations: [Other specified abnormal findings of blood chemistry] Onset: 02-11-2022 Episodic Results Test Name Value Interpretation Reference Range Facil ity Vital Signs Date Time Vital Sign Value Performing Clinician Rashard costa 05-31-2022 07:05-0500 Body weight 90.27 kg Katy Guillen PRESSURE TESTER.RACE RELATIONS PROFESSOR Work Phone: [facility] 05-31-2022 07:05-0500 Diastolic blood pressure 74 mm[Hg] Katy Guillen PRESSURE TESTER.RACE RELATIONS PROFESSOR Work Phone: [facility] 05-31-2022 07:05-0500 Heart rate 79 /min Katy Guillen PRESSURE TESTER.RACE RELATIONS PROFESSOR Work Phone: [facility] 05-31-2022 07:05-0500 Respiratory rate 16 /min Katy Guillen PRESSURE TESTER.RACE RELATIONS PROFESSOR Work Phone: [facility] 05-31-2022 07:05-0500 SaO2% (BldA) [Mass fraction] 100 % Katy Guillen PRESSURE TESTER.RACE RELATIONS PROFESSOR Work Phone: [facility] 05-31-2022 07:05-0500 Systolic blood pressure 118 mm[Hg] Ktay Guillen PRESSURE TESTER.RACE RELATIONS PROFESSOR Work Phone: [facility] 02-24-2022 09:39-0500 Body temperature 98.29 [degF] Marta Zabalay PA-C Work Phone: [facility] 02-24-2022 09:39-0500 Body weight 90.72 kg Marta Athy PA-C Work Phone: [facility] 02-24-2022 09:39-0500 Diastolic blood pressure 70 mm[Hg] Marta Athy PA-C Work Phone: [facility] 02-24-2022 09:39-0500 Heart rate 96 /min Marta Copoer PA-C Work Phone: [facility] 02-24-2022 09:39-0500 Respiratory rate 16 /min Marta YOUSIF-C Work Phone: [facility] 02-24-2022 09:39-0500 SaO2% (BldA) [Mass fraction] 98 % Marta YOUSIF-C Work Phone: [facility] 02-24-2022 09:39-0500 Systolic blood pressure 110 mm[Hg] Marta Cooper PA-C Work Phone: [facility] Encounters Encounter Date Encounter Type Care Provider Facility Start: 05-31-2022 End: 06-01-2022 ambulatory KATY GUILLEN Facility:[facility] Start: 05-31-2022 End: 05-31-2022 Office outpatient visit 15 minutes Katy Guillen APRN.RACE RELATIONS PROFESSOR Work Phone: [facility] [place] Procedures Date Procedure Procedure Detail Performing Clinician Start: 05-31-2022 Ecg routine ecg w/le ast 12 lds i&r only [facility] Provider Start: 02-11-2022 Us pelvic nonobstetr ic real-time image complete Alicia Holly MD Work Phone: Plan of Treatment Date Care Activity Detail Author Start: 12-16-2023 PAP TESTING PAP TESTING [facility] Start: 05-31-2022 End: 07-31-2022 CBC W Auto Differential panel - Blood CBC + DIFF Lab Routine Tachycardia Expected: 05/31/2022, Expires: 07/31/2022 [facility] Work Phone: Immunizations Immunization Date Immunization Notes Care Provider Fa jacque 11-27-2012 human papilloma viru s vaccine, quadrivalent Katy Guillen PRESSURE TESTER.RACE RELATIONS PROFESSOR Work Phone: [facility] Work Phone: 06-19-2012 hepatitis A vaccine, pediatric/adolescent dosage, 2 dose schedule Katy Guillen APRN.RACE RELATIONS PROFESSOR Work Phone: [facility] Work Phone: 06-19-2012 human papilloma viru s vaccine, quadrivalent Katy Guillen APRN.RACE RELATIONS PROFESSOR Work Phone: [facility] Work Phone: 06-19-2012 meningococcal polysaccharide (groups A, C, Y and W-135) diphtheria toxoid conjugate vaccine (MCV4P) Katy Guillen APRN.RACE RELATIONS PROFESSOR Work Phone: [facility] Work Phone: 11-04-2008 hepatitis A vaccine, pediatric/adolescent dosage, 2 dose schedule Katyelier Guillen APRN.RACE RELATIONS PROFESSOR Work Phone: [facility] Work Phone: 11-04-2008 meningococcal polysaccharide (groups A, C, Y and W-135) diphtheria toxoid conjugate vaccine (MCV4P) Katy Guillen APRN.RACE RELATIONS PROFESSOR Work Phone: [facility] Work Phone: 11-04-2008 tetanus toxoid, redu brayan diphtheria toxoid, and acellular pertussis vaccine, adsorbed Katy Guillen APRN.RACE RELATIONS PROFESSOR Work Phone: [facility] Work Phone: 11-04-2008 varicella virus vaccine Ashley Guillen APRN.RACE RELATIONS PROFESSOR Work Phone: [facility] Work Phone: 10-21-2001 measles, mumps and rubella virus vaccine Katy Paredess PRESSURE TESTER.RACE RELATIONS PROFESSOR Work Phone: [facility] Work Phone: 07-30-2001 diphtheria, tetanus toxoids and acellular pertussis vaccine, unspecified formulation Katy Guillen APRN.RACE RELATIONS PROFESSOR Work Phone: [facility] Work Phone: 05-07-2001 poliovirus vaccine, inactivated Katy Guillen APRN.RACE RELATIONS PROFESSOR Work Phone: [facility] Work Phone: 08-23-1997 diphtheria, tetanus toxoids and acellular pertussis vaccine, unspecified formulation Katy Guillen APRN.RACE RELATIONS PROFESSOR Work Phone: [facility] Work Phone: 08-23-1997 haemophilus influenz ae type b vaccine, PRP-T conjugate Katy Guillen PRESSURE TESTER.RACE RELATIONS PROFESSOR Work Phone: [facility] Work Phone: 05-24-1997 measles, mumps and rubella virus vaccine Katy Guillen PRESSURE TESTER.RACE RELATIONS PROFESSOR Work Phone: [facility] Work Phone: 03-04-1997 varicella virus vaccine Terr i Guillen PRESSURE TESTER.RACE RELATIONS PROFESSOR Work Phone: [facility] Work Phone: 1996 hepatitis B vaccine, pediatric or pediatric/adolescent dosage Katy Guillen PRESSURE TESTER.RACE RELATIONS PROFESSOR Work Phone: [facility] Work Phone: 1996 diphtheria, tetanus toxoids and acellular pertussis vaccine, unspecified formulation Katy Guillen PRESSURE TESTER.RACE RELATIONS PROFESSOR Work Phone: [facility] Work Phone: 1996 haemophilus influenz ae type b vaccine, PRP-T conjugate Katy Guillen PRESSURE TESTER.RACE RELATIONS PROFESSOR Work Phone: [facility] Work Phone: 1996 trivalent poliovirus vaccine, live, oral Ktay Guillen PRESSURE TESTER.RACE RELATIONS PROFESSOR Work Phone: [facility] Work Phone: 1996 diphtheria, tetanus toxoids and acellular pertussis vaccine, unspecified formulation Katy Guillen PRESSURE TESTER.RACE RELATIONS PROFESSOR Work Phone: [facility] Work Phone: 1996 haemophilus influenz ae type b vaccine, PRP-T conjugate Katy Guillen PRESSURE TESTER.RACE RELATIONS PROFESSOR Work Phone: [facility] Work Phone: 1996 trivalent poliovirus vaccine, live, oral Katy Guillen PRESSURE TESTER.RACE RELATIONS PROFESSOR Work Phone: [facility] Work Phone: 1996 diphtheria, tetanus toxoids and acellular pertussis vaccine, unspecified formulation [facility] PRESSURE TESTER.RACE RELATIONS PROFESSOR Work Phone: [facility] Work Phone: 1996 haemophilus influenz ae type b vaccine, PRP-T conjugate [facility] PRESSURE TESTER.RACE RELATIONS PROFESSOR Work Phone: [facility] Work Phone: 1996 trivalent poliovirus vaccine, live, oral [facility] PRESSURE TESTER.RACE RELATIONS PROFESSOR Work Phone: [facility] Work Phone: 1996 hepatitis B vaccine, pediatric or pediatric/adolescent dosage Katyelier Paredess PRESSURE TESTER.RACE RELATIONS PROFESSOR Work Phone: [facility] Work Phone: 1996 hepatitis B vaccine, pediatric or pediatric/adolescent dosage Katyelier Guillen PRESSURE TESTER.RACE RELATIONS PROFESSOR Work Phone: [facility] Work Phone: Payers Date Payer Category Payer Unknown [id number] 2020 Unknown [id number] 2020 Unknown [id number] 2013 Unknown [id number] Social History Date Type Detail Facility Start: 10-24-2017 End: 02-24-2022 Tobacco smoking status NHIS Never smoked tobacco [facility] Work Phone: Start: 10-24-2017 End: 02-24-2022 Tobacco use and exposure Smokeless tobacco non-user [facility] Work Phone: Start: 01-30-2022 End: 02-24-2022 Alcohol intake Current drinker of alcohol (finding) [facility] Start: 11-24-2019 [facility] Comment [facility] Start: 1996 Sex Assigned At Not on file [facility] Start: 02-14-2022 End: 02-24-2022 Exposure to SARS-CoV-2 (event) Not sure [facility] Start: 05-31-2022 Alcohol intake Ex-drinker (finding) [facility] Clinical Notes 01-30-2022 to 05-31-2022 Patient InstructionsKaty Guillen APRN.RACE RELATIONS PROFESSOR - 05/31/2022 6:59 AM John Danielle MD - 05/30/2022 5:41 PM ESTTelephone Encounter - Radha Warren RN - 05/29/2022 3:07 PM ESTPatient Instructions Note Date & Type Note Facility 05-31-2022 Note HNO ID: [id number] Author: Katy Guillen APRN.RACE RELATIONS PROFESSOR Service: ? Author Type: Nurse Specialist Type: Progress Notes Filed: 05/31/2022 8:08 AM Note Text: SUBJECTIVE: COVID-19 VACCINE(1) Never done HPV VACCINE(3 - 3-dose series) due on 03/29/2013 HEPATITIS C SCREENING Never done HIV SCREENING Never done DTAP,TDAP,TD(7 - Td or Tdap) due on 11/04/2018 INFLUENZA(1) due on 12/20/2021 DEPRESSION ASSESSMENT Never done HPI Christiano Jacques is a 27 year old female. PMH significant for ACTIVE PROBLEM LIST Pcos (Polycystic Ovarian Syndrome) Class 2 Obesity Due to Excess Calories Without Serious Comorbidity With Body Mass Index (Bmi) of 35.0 to 35.9 in Adult Presents today for BP and HR check. Current PCP: States that she was seen by a primary care physician about 1 year ago at [facility], does not recall the name. States prior to that no visit with primary care for 5 years or more. Labwork: If [facility] in March ER/Hospitalization: None reported Outside records: None available at time of her visit Sees Dr Holly Moore MD endocrinology. TC to her office 05/29/2022 with report of palpitations. She said this started 1 month ago when she started taking metformin. She reported that the day after starting metformin her heart rate has been higher than usual. She reported taking a supplement that mimics metformin and did not take metformin on the day she called in. She reports heart rate of 72-190. She reported normal rhythm. No symptoms reported. Pulse rate on her fitness tracker is reported. She stated she was planning on calling her [facility] doctor [facility] but if she could not get an appointment within 3 days she would show up in urgent care at [facility]. She was advised by her fisher seal to stop metformin if she felt it was causing her higher heart rate. She was advised to bring her supplement bottle to her PCP visit. She presented to urgent care. She was referred to internal medicine for BP and HR check. Sees Dr Holly DEVELOPMENT TEAM LEAD. Today reports that she has noted heart rates of 190 two times over the last year. One was recently at the end of a [employer] workout noted on her fitness tracker at the end of a workout. She reported no symptoms when she noted this. She has shortness of breath on exertion with exercise as would be expected, no change in this. No other symptoms on this occasion. She then reviewed heart rate on her fitness tracker and saw at least 1 other episode. She is not feeling any palpitations when this occurs. Only occurring with exercise. No change in functional capacity, has been able to work out at [employer] unchanged, no reported change in walking a flat surface or taking stairs, no limitations reported. Without report of headache chest pain palpitations dyspnea edema presyncope or syncope. No first-degree relatives known with heart disease. Non-smoker. She states she does not want to establish care here. States she feels like she is getting the run around when asked how much work-up she would like to complete. Last 3 Encounter BP Readings: Date: BP: 05/31/2022 118/74 02/24/2022 110/70 01/30/2022 126/74 Review of Systems Constitutional: Negative. Objective BP 118/74 Pulse 79 Resp 16 Wt 90.3 kg (199 lb) LMP 01/24/2022 (Exact Date) SpO2 100% BMI 35.25 kg/m? Physical Exam Vitals and nursing note reviewed. Constitutional: Appearance: Normal appearance. HENT: Head: Normocephalic and atraumatic. Eyes: Conjunctiva/sclera: Conjunctivae normal. Neck: Thyroid: No thyromegaly. Vascular: Normal carotid pulses. No JVD. Cardiovascular: Rate and Rhythm: Normal rate and regular rhythm. Pulses: Carotid pulses are 2+ on the right side and 2+ on the left side. Radial pulses are 2+ on the right side and 2+ on the left side. Heart sounds: Normal heart sounds. Pulmonary: Effort: Pulmonary effort is normal. Breath sounds: Normal breath sounds. Abdominal: General: Bowel sounds are normal. Palpations: Abdomen is soft. Musculoskeletal: Right lower leg: No edema. Left lower leg: No edema. Skin: General: Skin is warm and dry. Neurological: General: No focal deficit present. Mental Status: She is alert and oriented to person, place, and time. ALLERGIES Allergen Reactions - Sulfa (Sulfonamide * Vomiting Medications - Lactobacillus acidophilus (PROBIOTIC ORAL) Take by mouth. All natural probiotic Vital savannah - OMEGA-3 FLAXSEED OIL ORAL Take by mouth. - multivitamin tablet Take 1 tablet by mouth once daily. PAST MEDICAL HISTORY Diagnosis Date - Renal stones Social History Tobacco Use - Smoking status: Never - Smokeless tobacco: Never Vaping Use - Vaping Use: Never used Substance Use Topics - Alcohol use: Not Currently Comment: Occasionally - Drug use: No Component Latest Ref Rng AND Units 03/17/2021 03/17/2021 03/19/2022 03/21/2022 03/30/2022 8:37 AM 8:37 A (more content not included)... [facility] 05-31-2022 Instructions Katy Guillen APRN.CNS - 05/31/2022 7:06 AM EST Maintain adequate hydration, aim for 64 ounces a day. Avoid caffeinated beverages. Stop taking metformin Stop taking supplement. We can complete additional testing / work up if you are noting any symptoms or continued elevated heart rates on your fitness tracker or would like to do so. Go to the emergency department for any severe or concerning symptoms. Schedule a follow up visit with your fisher seal. Establishing with a primary care doctor is recommended. documented in this encounter [facility] 05-31-2022 History of Presen t illness Narrative SUBJECTIVE: COVID-19 VACCINE(1) Never done HPV VACCINE(3 - 3-dose series) due on 03/29/2013 HEPATITIS C SCREENING Never done HIV SCREENING Never done DTAP,TDAP,TD(7 - Td or Tdap) due on 11/04/2018 INFLUENZA(1) due on 12/20/2021 DEPRESSION ASSESSMENT Never done HPI Christiano Jacques is a 27 year old female. PMH significant for ACTIVE PROBLEM LIST Pcos (Polycystic Ovarian Syndrome) Class 2 Obesity Due to Excess Calories Without Serious Comorbidity With Body Mass Index (Bmi) of 35.0 to 35.9 in Adult Presents today for BP and HR check. Current PCP: States that she was seen by a primary care physician about 1 year ago at [facility], does not recall the name. States prior to that no visit with primary care for 5 years or more. Labwork: If [facility] in [place] ER/Hospitalization: None reported Outside records: None available at time of her visit Sees Dr Holly Moore MD endocrinology. TC to her office 05/29/2022 with report of palpitations. She said this started 1 month ago when she started taking metformin. She reported that the day after starting metformin her heart rate has been higher than usual. She reported taking a supplement that mimics metformin and did not take metformin on the day she called in. She reports heart rate of 72-190. She reported normal rhythm. No symptoms reported. Pulse rate on her fitness tracker is reported. She stated she was planning on calling her primary care doctor [facility] but if she could not get an appointment within 3 days she would show up in urgent care at [facility]. She was advised by her fisher seal to stop metformin if she felt it was causing her higher heart rate. She was advised to bring her supplement bottle to her PCP visit. She presented to urgent care. She was referred to internal medicine for BP and HR check. Sees Dr Holly DEVELOPMENT TEAM LEAD. Today reports that she has noted heart rates of 190 two times over the last year. One was recently at the end of a [employer] workout noted on her fitness tracker at the end of a workout. She reported no symptoms when she noted this. She has shortness of breath on exertion with exercise as would be expected, no change in this. No other symptoms on this occasion. She then reviewed heart rate on her fitness tracker and saw at least 1 other episode. She is not feeling any palpitations when this occurs. Only occurring with exercise. No change in functional capacity, has been able to work out at [employer] unchanged, no reported change in walking a flat surface or taking stairs, no limitations reported. Without report of headache chest pain palpitations dyspnea edema presyncope or syncope. No first-degree relatives known with heart disease. Non-smoker. She states she does not want to establish care here. States she feels like she is getting the run around when asked how much work-up she would like to complete. Last 3 Encounter BP Readings: Date: BP: 05/31/2022 118/74 02/24/2022 110/70 01/30/2022 126/74 Review of Systems Constitutional: Negative. Objective BP 118/74 Pulse 79 Resp 16 Wt 90.3 kg (199 lb) LMP 01/24/2022 (Exact Date) SpO2 100% BMI 35.25 kg/m Physical Exam Vitals and nursing note reviewed. Constitutional: Appearance: Normal appearance. HENT: Head: Normocephalic and atraumatic. Eyes: Conjunctiva/sclera: Conjunctivae normal. Neck: Thyroid: No thyromegaly. Vascular: Normal carotid pulses. No JVD. Cardiovascular: Rate and Rhythm: Normal rate and regular rhythm. Pulses: Carotid pulses are 2+ on the right side and 2+ on the left side. Radial pulses are 2+ on the right side and 2+ on the left side. Heart sounds: Normal heart sounds. Pulmonary: Effort: Pulmonary effort is normal. Breath sounds: Normal breath sounds. Abdominal: General: Bowel sounds are normal. Palpations: Abdomen is soft. Musculoskeletal: Right lower leg: No edema. Left lower leg: No edema. Skin: General: Skin is warm and dry. Neurological: General: No focal deficit present. Mental Status: She is alert and oriented to person, place, and time. ALLERGIES Allergen Reactions Sulfa (Sulfonamide * Vomiting Medications Lactobacillus acidophilus (PROBIOTIC ORAL) Take by mouth. All natural probiotic Vital savannah OMEGA-3 FLAXSEED OIL ORAL Take by mouth. multivitamin tablet Take 1 tablet by mouth once daily. PAST MEDICAL HISTORY Diagnosis Date Renal stones Social History Tobacco Use Smoking status: Never Smokeless tobacco: Never Vaping Use Vaping Use: Never used Substance Use Topics Alcohol use: Not Currently Comment: Occasionally Drug use: No Component Latest Ref Rng & Units 03/17/2021 03/17/2021 03/19/2022 03/21/2022 03/30/2022 8:37 AM 8:37 AM Protein, Total 6.3 - 8.0 g/dL 6.8 7.4 Albumin 3.9 - 4.9 g/dL 4.1 4.2 Calcium 8.5 - 10.2 mg/dL 9.2 9.4 Bilirubin, Total 0.2 - 1.3 mg/dL 0.7 0.7 Alkaline Phosphatase 34 - 123 U/L 59 77 AST 13 - 35 U/L 27 38 (H) Glucose 74 - 99 mg/dL 83 87 BUN 7 - 21 mg/dL 11 14 Creatinine 0.58 - 0.96 mg/dL 0.64 0.71 Sodium 136 - 144 mmol/L 137 140 Potassium 3.7 - 5.1 mmol/L 4.2 4.2 4.0 4.2 Chloride 97 - 105 mmol/L 105 105 CO2 22 - 30 mmol/L 22 24 Anion Gap 9 - 18 mmol/L 10 11 ALT 7 - 38 U/L 21 31 eGFR- >60 eGFR-All Other Races . >60 eGFR >=60 mL/min/1.73m 120 Cholesterol, Total <200 mg/dL 131 155 Triglyceride <150 mg/dL 96 143 HDL Cholesterol >39 mg/dL 59 51 LDL Cholesterol <100 mg/dL 53 75 Non HDL Cholesterol <130 mg/dL 72 104 Fasting Time hrs 12 12 VLDL Cholesterol <30 mg/dL 19 29 TC:HDL Ratio <5.10 2.22 3.04 LDL:HDL Ratio <2.54 0.90 1.47 Testosterone <40 ng/dL 56 (H) 61 (H) Testosterone Free 0.06 - 1.06 ng/dL 1.04 Hemoglobin A1C 4.3 - 5.6 % 4.7 4.6 Estimated Average Glucose mg/dL 88 85 TSH 0.270 - 4.200 mIU/L 2.940 2.650 Cortisol 4.8 - 19.5 ug/dL 10.7 6.1 8.0 Hydroxyprogesterone <=206.00 ng/dL 19.40 DHEA-S 98.8 - 340.0 ug/dL 304.7 Vitamin D 25 Hydroxy 31.0 - 80.0 ng/mL 47.2 Prolactin 4.5 - 26.8 ng/mL 13.4 FSH See comment mIU/mL 6.3 LH See comment mIU/mL 4.7 Estradiol 17B pg/mL 62 Glucose, Fasting 74 - 99 mg/dL 91 ACTH 7.2 - 63.3 pg/mL 30.7 21.8 ASSESSMENT/PLAN: 1. Tachycardia - ICD9: 785.0, ICD10: R00.0 She reports increased heart rate noted on her fitness tracker 2 times in the last year. Heart rate at 190 bpm x2. Asymptomatic. No change in functional capacity, able to complete CrossFit. She did not bring pill bottle for supplement to her visit today. She notes currently not taking metformin or supplement. Notes maintaining adequate hydration. Low - ECG COMPLETE -in office today showed normal sinus rhythm with sinus arrhythmia at no ectopics - CBC + DIFF - COMP METABOLIC PANEL - TSH BLD - CONSULT TO CARDIOLOGY - OUTSIDE VENDOR CARDIAC OUTPATIENT EXTENDED RHYTHM RECORDING (WITHOUT TELEMETRY) Defers lab work, referral to cardiology, and [facility] at this time due to being asymptomatic. She will continue to monitor for any symptoms and complete further work-up as indicated. Orders placed in the event that she needs these. Advised: Maintain adequate hydration, aim for 64 ounces a day. Avoid caffeinated beverages. Stop taking metformin Stop taking supplement. We can complete additional testing / work up if you are noting any symptoms or continued elevated heart rates on your fitness tracker or would like to do so. Go to the emergency department for any severe or concerning symptoms. Schedule a follow up visit with your fisher seal. Establishing with a primary care doctor is recommended. Katy Guillen APRN.EDA Medical Decision Making: Problems: Low: Acute, uncomplicated illness or injury Data: Unique test(s) ordered: 3+ Medical Decision Making Level: 3 - Low documented in this encounter [facility] 05-30-2022 Note HNO ID: [id number] Author: Jose Danielle MD Service: ? Author Type: Physician Type: Progress Notes Filed: 05/30/2022 5:49 PM Note Text: [facility] Triage Note: Patient presents to the express care with complaint of fast heart rate on her tracker. It got up to 190 during cross fit. She does not notice any symptoms when her heart rate is fast. She was advised to follow up with her PCP within 3 days or go to the express care. She does not have a current PCP. New limited appointment in primary care facilitated tomorrow. [facility] 05-30-2022 History of Presen t illness Narrative [facility] Triage Note: Patient presents to the [facility] with complaint of fast heart rate on her tracker. It got up to 190 during cross fit. She does not notice any symptoms when her heart rate is fast. She was advised to follow up with her PCP within 3 days or go to the [facility]. She does not have a current PCP. New limited appointment in primary care facilitated tomorrow. documented in this encounter [facility] 05-29-2022 Miscellaneous Notes Called pt back and update that Dr. Moore agrees with current plan. Pt updated she can stop taking the metformin if she feels this is causing her high heart rate. Pt instructed when she goes for follow up to take her supplement bottle with her so that the doctor can see what is in it. When asked if pt made a follow up with her PCP, pt states, No I think I will just go to [facility] instead since my regular doctor is not through [facility] either this evening or tomorrow . Noted. Agree with the assessment and plan. Holly Moore MD Reason for Disposition [1] Palpitations AND [2] no improvement after using CARE ADVICE Answer Assessment - Initial Assessment Questions 1. DESCRIPTION: pt states it started a month ago when she started taking the metformin one month ago. 2. ONSET: Since I have been on the metformin, I noticed about a day after I started taking it that my heartrate has been higher than usual . I started taking a supplement that mimics metformin too . I did not take the metformin today though . 3. DURATION: pt states it took about a minute to go down to 120 and then it went back down to around 72 (resting heartrate). 4. PATTERN: Pt states it is a normal rhythm always. 5. TAP: pt states her heartrate is normal. 6. HEART RATE: pt's heartrate is 90 bpm. 7. RECURRENT SYMPTOM: Pt states she notices that her heartrate is around 106-110 just from walking at a normal rate. 8. CAUSE: pt states she started taking the metformin a day before when she noticed this started happening. 9. CARDIAC HISTORY: pt denies any cardiac history or lung history (asthma, COPD). 10. OTHER SYMPTOMS: Pt denies chest pain, shortness of breath, difficulty breathing, dizziness, heart palpitations, or heart skipping. Pt states she does not feel like her heart is beating harder. Pt denies being symptomatic even when her heartrate has been 190. 11. : pt denies. Pt states, I know for sure, because we don't want any . 12. Pt denies smoking. Protocols used: Heart Rate and Heartbeat [id number] Per Triage Protocol Recommends: Pt be seen by PCP within the next 3 days. If unable to be seen within the next few days, pt instructed to go to [facility] to be seen. Pt aware of red flag symptoms and what to do if they occur. Pt verbalized agreement and understanding. Per pt, I will call my doctors office first (outside of [facility]) . If I can't make an appointment there within the next day or so I will go to a [facility] . Please advise. 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 Bernadette Das MA documented in this encounter [facility] 03-19-2022 Note HNO ID: [id number] Author: Holly Moore MD Service: ? Author Type: Physician Type: Progress Notes Filed: 03/19/2022 9:14 AM Note Text: Endocrinology and Metabolism [place] Initial Clinic Visit Note Virtual Visit (Audio/Visual) I have discussed the nature of this visit with the patient which will occur via [facility] (Phone, Virtual Visit) and she agrees to proceed with this interaction . REASON FOR CONSULT: Evaluation of ovarian hyperandrogenism REQUESTING PHYSICIAN: SELF Phone: N/A Fax: My final recommendations will be communicated back to the requesting physician by way of shared medical record or letter via [place] mail. JOSEF Jacques is a 27 year old female presenting as a new patient to me for evaluation of ovarian hyperandrogenism. She reports severe pain during periods, irregular cycles and inability to lose weight. She was in a nutrition program and was able to lose weight but after the program she regained the weight. She reports having cravings for sweets and carbs. She does CrossFit and remains active. She does not have any underlying disease such as arrhythmias or tachycardia or HTN. She had hx of breast reduction surgery 4 years ago, states that helped her lose weight at that time. NIH Criteria oligo/anovulation: yes evidence of hyperandrogenism: established biochemical evidence of hyperandrogenism other causes excluded: no Hirsutism started: n/a History of deepening of voice: No History of change in genitalia: No LMP: 03/13/2022 Menstrual flow: 3-4 days Menarche: [age] years old Number of Pregnancies: G0 Planning a : no plans for atleast one year Currently taking oral contraception: no PAST MEDICAL HISTORY: PAST MEDICAL HISTORY Diagnosis Date Renal stones PAST SURGICAL HISTORY: PAST SURGICAL HISTORY Procedure Laterality Date REDUCTION OF LARGE BREAST 07/2016 Breast reduction FAMILY HISTORY: FAMILY HISTORY Problem Relation Age of Onset No Known Problems Mother Hypertension Father No Known Problems Sister Thyroid Maternal Grandmother No Known Problems Maternal Grandfather No Known Problems Paternal Grandmother Hypertension Paternal Grandfather Breast Cancer Maternal Aunt 40 Thyroid Other maternal cousin Thyroid Other Maternal Great-grandmother SOCIAL HISTORY: Social History Tobacco Use Smoking status: Never Smokeless tobacco: Never Vaping Use Vaping Use: Never used Substance Use Topics Alcohol use: Yes Comment: Occasionally Drug use: No MEDICATIONS: Current Outpatient Medications on File Prior to Visit Medication Sig Lactobacillus acidophilus (PROBIOTIC ORAL) Take by mouth. All natural probiotic Vital [place] OMEGA-3 FLAXSEED OIL ORAL Take by mouth. multivitamin tablet Take 1 tablet by mouth once daily. No current facility-administered medications on file prior to visit. ALLERGIES: ALLERGIES Allergen Reactions Sulfa (Sulfonamide * Vomiting ROS Review of Systems Constitutional: Positive for fatigue, night sweats and recent unintentional weight change. HENT: Negative for trouble swallowing, postnasal drip and thyroid pain (lower neck). Eyes: Negative for visual disturbance. Respiratory: Negative for difficulty breathing. Cardiovascular: Negative for chest pain, leg swelling and claudication. Gastrointestinal: Negative for heartburn, nausea, vomiting, abdominal pain, diarrhea and constipation. Genitourinary: Positive for urgency and menstruating. Negative for frequent urination, slower stream, irregular menses and amenorrhea. Musculoskeletal: Negative for myalgias, muscle weakness and bone pain. Skin: Negative for skin color change. Neurological: Positive for dizziness and headaches. Negative for numbness. Endo/Heme/Allergies: Positive for polydipsia, heat intolerance when others are comfortable, hot flashes and changes in body hair. Negative for cold intolerance when others are comfortable and flushing. PHYSICAL EXAM (virtual) LMP 01/24/2022 (Exact Date) APPEARANCE:Well appearing, alert, in no acute distress, well-hydrated, well nourished. PREVIOUS DATA Diagnostic tests reviewed for today's visit: Most recent labs Most recent imaging IMAGING: Pelvis US (01/2022) Impression Retroverted fibroid uterus that measures 65 mm x 37 mm x 45 mm. The fibroid is intramural and measurements are noted below: Fibroid(s): Size 19 mm x 20 mm x 24 mm. Mean 21.0 mm. Vol 4.775 cm?. Right lateral wall The central endometrium complex measures 11.1 mm in combined thickness. No abnormal blood flow to suggest a polyp or focal endometrial pathology is observed within the endometrial complex. The contour of the endometrial cavity was normal on 3-D imaging. Both ovaries contain multiple small follicular cysts at the periphery of the ovarian stroma. This finding is suggestive of polycystic ovarian syndrome. No adnexal masses were observ (more content not included)... [facility] 03-19-2022 History of Presen t illness Narrative Endocrinology and Metabolism [place] Initial Clinic Visit Note Virtual Visit (Audio/Visual) I have discussed the nature of this visit with the patient which will occur via [facility] (Phone, Virtual Visit) and she agrees to proceed with this interaction . REASON FOR CONSULT: Evaluation of ovarian hyperandrogenism REQUESTING PHYSICIAN: SELF Phone: N/A Fax: My final recommendations will be communicated back to the requesting physician by way of shared medical record or letter via [place] mail. JOSEF Jacques is a 27 year old female presenting as a new patient to me for evaluation of ovarian hyperandrogenism. She reports severe pain during periods, irregular cycles and inability to lose weight. She was in a nutrition program and was able to lose weight but after the program she regained the weight. She reports having cravings for sweets and carbs. She does CrossFit and remains active. She does not have any underlying disease such as arrhythmias or tachycardia or HTN. She had hx of breast reduction surgery 4 years ago, states that helped her lose weight at that time. NIH Criteria oligo/anovulation: yes evidence of hyperandrogenism: established biochemical evidence of hyperandrogenism other causes excluded: no Hirsutism started: n/a History of deepening of voice: No History of change in genitalia: No LMP: 03/13/2022 Menstrual flow: 3-4 days Menarche: 10-13 years old Number of Pregnancies: G0 Planning a : no plans for atleast one year Currently taking oral contraception: no PAST MEDICAL HISTORY: PAST MEDICAL HISTORY Diagnosis Date Renal stones PAST SURGICAL HISTORY: PAST SURGICAL HISTORY Procedure Laterality Date REDUCTION OF LARGE BREAST 07/2016 Breast reduction FAMILY HISTORY: FAMILY HISTORY Problem Relation Age of Onset No Known Problems Mother Hypertension Father No Known Problems Sister Thyroid Maternal Grandmother No Known Problems Maternal Grandfather No Known Problems Paternal Grandmother Hypertension Paternal Grandfather Breast Cancer Maternal Aunt 40 Thyroid Other maternal cousin Thyroid Other Maternal Great-grandmother SOCIAL HISTORY: Social History Tobacco Use Smoking status: Never Smokeless tobacco: Never Vaping Use Vaping Use: Never used Substance Use Topics Alcohol use: Yes Comment: Occasionally Drug use: No MEDICATIONS: Current Outpatient Medications on File Prior to Visit Medication Sig Lactobacillus acidophilus (PROBIOTIC ORAL) Take by mouth. All natural probiotic Vital [place] OMEGA-3 FLAXSEED OIL ORAL Take by mouth. multivitamin tablet Take 1 tablet by mouth once daily. No current facility-administered medications on file prior to visit. ALLERGIES: ALLERGIES Allergen Reactions Sulfa (Sulfonamide * Vomiting ROS Review of Systems Constitutional: Positive for fatigue, night sweats and recent unintentional weight change. HENT: Negative for trouble swallowing, postnasal drip and thyroid pain (lower neck). Eyes: Negative for visual disturbance. Respiratory: Negative for difficulty breathing. Cardiovascular: Negative for chest pain, leg swelling and claudication. Gastrointestinal: Negative for heartburn, nausea, vomiting, abdominal pain, diarrhea and constipation. Genitourinary: Positive for urgency and menstruating. Negative for frequent urination, slower stream, irregular menses and amenorrhea. Musculoskeletal: Negative for myalgias, muscle weakness and bone pain. Skin: Negative for skin color change. Neurological: Positive for dizziness and headaches. Negative for numbness. Endo/Heme/Allergies: Positive for polydipsia, heat intolerance when others are comfortable, hot flashes and changes in body hair. Negative for cold intolerance when others are comfortable and flushing. PHYSICAL EXAM (virtual) LMP 01/24/2022 (Exact Date) APPEARANCE:Well appearing, alert, in no acute distress, well-hydrated, well nourished. PREVIOUS DATA Diagnostic tests reviewed for today's visit: Most recent labs Most recent imaging IMAGING: Pelvis US (01/2022) Impression Retroverted fibroid uterus that measures 65 mm x 37 mm x 45 mm. The fibroid is intramural and measurements are noted below: Fibroid(s): Size 19 mm x 20 mm x 24 mm. Mean 21.0 mm. Vol 4.775 cm . Right lateral wall The central endometrium complex measures 11.1 mm in combined thickness. No abnormal blood flow to suggest a polyp or focal endometrial pathology is observed within the endometrial complex. The contour of the endometrial cavity was normal on 3-D imaging. Both ovaries contain multiple small follicular cysts at the periphery of the ovarian stroma. This finding is suggestive of polycystic ovarian syndrome. No adnexal masses were observed. There is no free fluid visualized in the peritoneal cavity. ASSESSMENT AND PLAN Christiano Jacques is a 27 year old female with PMHx of PCOS and class 2 obesity presenting to endocrinology, interested in treatment. 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 Discussed options available for weight loss and patient opted for Contrave, discussed its adverse effects as well. She is apprehensive about needles and thus did not prefer GLP-[id number] - After work-up, will prescribe metformin and Contrave. - Discussed briefly about mediterranean diet and low carb diet, counseling given today. She may benefit from another nutrition consult focusing on low carb mediterranean diet. - Encouraged to continue CrossFit I spent a total of 40 minutes on the date of the service which included preparing to see the patient, [id number] patient care, completing clinical documentation, obtaining and/or reviewing separately obtained history, performing a medically appropriate examination, counseling and educating the patient/family/caregiver, and ordering medications, tests, or procedures. The patient should follow-up in 3 months. Holly Moore MD [facility] Endocrinology and Metabolism [place] - [facility] [phone] Medical Decision Making: Problems: Moderate: 1+ chronic illnesses with change Data: Unique test result(s) reviewed: 3+ Unique test(s) ordered: 3+ Medical Decision Making Level: 4 - Moderate documented in this encounter [facility] 03-18-2022 Miscellaneous Notes Order placed. Please see pt's mychart message and advise. Soumya Spicer LPN documented in this encounter [facility] 02-24-2022 Note HNO ID: [id number] Author: Marta Cooper PA-C Service: ? Author Type: Physician Concession Cashier Type: Progress Notes Filed: 02/24/2022 10:54 AM Note Text: This note was created using [employer]. Subjective Christiano Jacques is a 27 year old female. HPI Patient presents with a chief complaint of congestion and left ear pain. She has been congested over the past 3 to 4 days. Her left ear started hurting in the melanite last night. She stuck some [id number] eardrops and there and a Q-tip. She states the pain had worsened today so she came in. No significant cough. She did have some vomiting first day of the illness and low-grade temp. She did take a home COVID test which was negative. No chest pain or shortness of breath. No abdominal pain or diarrhea. Review of Systems Constitutional: Positive for fever. HENT: Positive for congestion, ear pain, sinus pressure and sinus pain. Negative for ear discharge and sore throat. Respiratory: Negative for cough. Cardiovascular: Negative. Gastrointestinal: Positive for nausea and vomiting. Negative for abdominal pain and diarrhea. Musculoskeletal: Positive for myalgias. Skin: Negative. Neurological: Positive for headaches. All other systems reviewed and are negative. PAST MEDICAL HISTORY Diagnosis Date Renal stones Current Outpatient Medications Medication Sig Dispense Refill Lactobacillus acidophilus (PROBIOTIC ORAL) Take by mouth. All natural probiotic Vital [place] OMEGA-3 FLAXSEED OIL ORAL Take by mouth. multivitamin tablet Take 1 tablet by mouth once daily. amoxicillin-clavulanic acid (AUGMENTIN) 875-125 mg per tablet Take 1 tablet by mouth twice daily for 7 days. 14 tablet 0 ofloxacin (FLOXIN) 0.3 % otic solution Use 5 Drops in the left ear twice daily for 7 days. 5 mL 0 No current facility-administered medications for this visit. PAST SURGICAL HISTORY Procedure Laterality Date REDUCTION OF LARGE BREAST 07/2016 Breast reduction FAMILY HISTORY Problem Relation Age of Onset No Known Problems Mother Hypertension Father No Known Problems Sister Thyroid Maternal Grandmother No Known Problems Maternal Grandfather No Known Problems Paternal Grandmother Hypertension Paternal Grandfather Breast Cancer Maternal Aunt 40 Thyroid Other maternal cousin Thyroid Other Maternal Great-grandmother Social History Tobacco Use Smoking status: Never Smokeless tobacco: Never Vaping Use Vaping Use: Never used Substance Use Topics Alcohol use: Yes Comment: Occasionally Drug use: No Objective BP 110/70 Pulse 96 Temp 36.8 ?C (98.3 ?F) Resp 16 Wt 90.7 kg (200 lb) LMP 01/24/2022 (Exact Date) SpO2 98% BMI 35.43 kg/m? Physical Exam Vitals reviewed. Constitutional: Appearance: Normal appearance. HENT: Head: Normocephalic and atraumatic. Right Ear: Tympanic membrane, ear canal and external ear normal. Ears: Comments: Suppurative middle ear effusion on the left. The external auditory canal also erythematous and swollen. Nose: Congestion present. Mouth/Throat: Mouth: Mucous membranes are moist. Pharynx: Oropharynx is clear. Cardiovascular: Rate and Rhythm: Normal rate and regular rhythm. Heart sounds: Normal heart sounds. Pulmonary: Effort: Pulmonary effort is normal. Breath sounds: Normal breath sounds. Musculoskeletal: Cervical back: Neck supple. Skin: General: Skin is warm and dry. Neurological: Mental Status: She is alert. Assessment and Plan ASSESSMENT/PLAN: 1. Viral illness - ICD9: 079.99, ICD10: B34.9 (primary diagnosis) - Discussed viral etiology and rationale for treatment. - Symptomatic treatment with prn analgesia - Supportive care with fluids and rest - declined further covid testing. 2. Acute otitis media, left - ICD9: 382.9, ICD10: H66.92 - Will begin treatment with Augmentin 875 mg PO BID for 7 days - Supportive care with plenty of fluids, rest, and analgesia prn. - Follow up in 3-5 days if symptoms persist or worsen. - ofloxacin for ear canal redness and swelling. Marta Cooper PA-C [facility] 02-24-2022 History of Presen t illness Narrative This note was created using [employer]. Subjective Christiano Jacques is a 27 year old female. HPI Patient presents with a chief complaint of congestion and left ear pain. She has been congested over the past 3 to 4 days. Her left ear started hurting in the melanite last night. She stuck some [id number] eardrops and there and a Q-tip. She states the pain had worsened today so she came in. No significant cough. She did have some vomiting first day of the illness and low-grade temp. She did take a home COVID test which was negative. No chest pain or shortness of breath. No abdominal pain or diarrhea. Review of Systems Constitutional: Positive for fever. HENT: Positive for congestion, ear pain, sinus pressure and sinus pain. Negative for ear discharge and sore throat. Respiratory: Negative for cough. Cardiovascular: Negative. Gastrointestinal: Positive for nausea and vomiting. Negative for abdominal pain and diarrhea. Musculoskeletal: Positive for myalgias. Skin: Negative. Neurological: Positive for headaches. All other systems reviewed and are negative. PAST MEDICAL HISTORY Diagnosis Date Renal stones Current Outpatient Medications Medication Sig Dispense Refill Lactobacillus acidophilus (PROBIOTIC ORAL) Take by mouth. All natural probiotic Vital [place] OMEGA-3 FLAXSEED OIL ORAL Take by mouth. multivitamin tablet Take 1 tablet by mouth once daily. amoxicillin-clavulanic acid (AUGMENTIN) 875-125 mg per tablet Take 1 tablet by mouth twice daily for 7 days. 14 tablet 0 ofloxacin (FLOXIN) 0.3 % otic solution Use 5 Drops in the left ear twice daily for 7 days. 5 mL 0 No current facility-administered medications for this visit. PAST SURGICAL HISTORY Procedure Laterality Date REDUCTION OF LARGE BREAST 07/2016 Breast reduction FAMILY HISTORY Problem Relation Age of Onset No Known Problems Mother Hypertension Father No Known Problems Sister Thyroid Maternal Grandmother No Known Problems Maternal Grandfather No Known Problems Paternal Grandmother Hypertension Paternal Grandfather Breast Cancer Maternal Aunt 40 Thyroid Other maternal cousin Thyroid Other Maternal Great-grandmother Social History Tobacco Use Smoking status: Never Smokeless tobacco: Never Vaping Use Vaping Use: Never used Substance Use Topics Alcohol use: Yes Comment: Occasionally Drug use: No Objective BP 110/70 Pulse 96 Temp 36.8 C (98.3 F) Resp 16 Wt 90.7 kg (200 lb) LMP 01/24/2022 (Exact Date) SpO2 98% BMI 35.43 kg/m Physical Exam Vitals reviewed. Constitutional: Appearance: Normal appearance. HENT: Head: Normocephalic and atraumatic. Right Ear: Tympanic membrane, ear canal and external ear normal. Ears: Comments: Suppurative middle ear effusion on the left. The external auditory canal also erythematous and swollen. Nose: Congestion present. Mouth/Throat: Mouth: Mucous membranes are moist. Pharynx: Oropharynx is clear. Cardiovascular: Rate and Rhythm: Normal rate and regular rhythm. Heart sounds: Normal heart sounds. Pulmonary: Effort: Pulmonary effort is normal. Breath sounds: Normal breath sounds. Musculoskeletal: Cervical back: Neck supple. Skin: General: Skin is warm and dry. Neurological: Mental Status: She is alert. Assessment and Plan ASSESSMENT/PLAN: 1. Viral illness - ICD9: 079.99, ICD10: B34.9 (primary diagnosis) - Discussed viral etiology and rationale for treatment. - Symptomatic treatment with prn analgesia - Supportive care with fluids and rest - declined further covid testing. 2. Acute otitis media, left - ICD9: 382.9, ICD10: H66.92 - Will begin treatment with Augmentin 875 mg PO BID for 7 days - Supportive care with plenty of fluids, rest, and analgesia prn. - Follow up in 3-5 days if symptoms persist or worsen. - ofloxacin for ear canal redness and swelling. Marta Cooper PA-C documented in this encounter [facility] 02-24-2022 Instructions Marta Cooper PA-C - 02/24/2022 9:55 AM EST Claritin d Flonase nasal spray Can take ibuprofen and tylenol documented in this encounter [facility] 01-30-2022 Note HNO ID: [id number] Author: Alicia Holly MD Service: ? Author Type: Physician Type: Progress Notes Filed: 01/30/2022 10:43 AM Note Text: Christiano is a 26 year old who presents for an annual gynecologic exam with complaints, inability to lose weight started doing CF, getting hormones checked. Had elevated Testosterone levels- wonders if PCOS. Menses slightly irregular at times. Does not desires BC. Heading to [place] for road trip with Menses: sometimes irregular- skipped due to stress Contraception: none HPV vaccine: Yes Last Pap: 12/22/2020 normal HPV: N/A History of abnormal pap: No Last mammogram: never Sexually active: Yes History of STDS: None Patient concerns for STD exposure: No. Pain with intercourse: No Postcoital bleeding: No Exercise: routine- Cross fit Diet: Balanced- 2000kcal/day OB History T0 L0 SAB0 IAB0 Ectopic0 Multiple0 Live Births0 Tubular Riveter History LMP: 01/24/2022 (Exact Date), Having periods Age at Menarche: Age at First : Age at Menopause: Tubular Riveter History Comments: Sexual Activity: Yes; Male Contraception: Condom PAST MEDICAL HISTORY Diagnosis Date Renal stones PAST SURGICAL HISTORY Procedure Laterality Date REDUCTION OF LARGE BREAST 07/2016 Breast reduction FAMILY HISTORY Problem Relation Age of Onset No Known Problems Mother Hypertension Father No Known Problems Sister Thyroid Maternal Grandmother No Known Problems Maternal Grandfather No Known Problems Paternal Grandmother Hypertension Paternal Grandfather Breast Cancer Maternal Aunt 40 Thyroid Other maternal cousin Thyroid Other Maternal Great-grandmother SOCIAL HISTORY Social History Tobacco Use Smoking status: Never Smokeless tobacco: Never Vaping Use Vaping Use: Never used Substance Use Topics Alcohol use: Yes Comment: Occasionally Drug use: No REVIEW OF SYSTEMS Abdomen: No abdominal pain, nausea, vomiting, diarrhea, or constipation. No bloating, early satiety, indigestion, or increased flatulence. Bladder: No dysuria, gross hematuria, urinary frequency, urinary urgency, or incontinence. Breast: No breast lumps, nipple d/c, overlying skin changes, redness or skin retraction. Allergies and current medication updated:Yes EXAM: BP 126/74 Ht 5' 3 (1.60m) Wt 201 lb (91.2kg) LMP 01/24/2022 BMI 35.61 kg/(m2). GENERAL: pleasant, female in no apparent distress HEENT: Normocephalic, atraumatic, mucus membranes moist, and no lesions NECK: Supple, full range of motion, no adenopathy, and thyroid normal DERMATOLOGY: Normal, without lesions, non-icteric, and non-hirsute BREAST: soft, non-tender, symmetric, no dominant mass, normal nipple-areolar complex, no lymphadenopathy, and no nipple discharge ABDOMEN: soft, non-tender, and no masses PELVIC: external genitalia normal, normal Bartholin's glands, urethra, [place]'s glands, no vulvar lesions, no cervical lesions, good vaginal support, physiologic discharge present, normal appearing perineal body and perianal region BIMANUAL: uterus normal size, shape and consistency, no adnexal masses, and non-tender RECTOVAGINAL: deferred. NEURO: alert and oriented x3,exam grossly non-focal EXTREMITIES: normal ASSESSMENT/PLAN: 1) Health maintenance: Pap/HPV up to date. Nutrition, exercise and routine health maintenance exams reviewed. HPV vaccine: completed series 2) Contraception: none. Contraceptive options reviewed and information provided. 3) STD screening: Declined STD check. 4) Follow up one year or sooner as needed 5) reviewed diet/exercise- books recommended. Discussed Adipex possible metformin. Recommend ADIPEX when back from vacation. Common SE reviewed- no contraindication to start. REVIEWED NEEDS TO USE CONDOMS while on medication- do not get . Offered OCPs- declines. Pt will call when back from vacay to order adipex. 6) pelvic us. Alicia Brunson MD [facility] 01-30-2022 Note HNO ID: [id number] Author: Mary Mendiola Ma Service: ? Author Type: ? Type: Progress Notes Filed: 01/30/2022 10:43 AM Note Text: Welfare Service Aide offered: Patient declines. [facility] documented in this encounter [facility] note* Diagnosis Viral illness- Primary Unspecified viral infection, in conditions classified elsewhere and of unspecified site Acute otitis media, left Unspecified otitis media documented in this encounter [facility] note* Diagnosis History of PCOS- Primary Personal history of other genital system and obstetric disorders Elevated testosterone level documented in this encounter [facility] note* Diagnosis PCOS (polycystic ovarian syndrome)- Primary Polycystic ovaries Class 2 obesity due to excess calories without serious comorbidity with body mass index (BMI) of 35.0 to 35.9 in adult documented in this encounter [facility] note* Diagnosis PCOS (polycystic ovarian syndrome)- Primary Polycystic ovaries documented in this encounter [facility] note* Diagnosis Abnormal uterine bleeding (AUB) Elevated testosterone level documented in this encounter [facility] note* Diagnosis Tachycardia- Primary Tachycardia, unspecified documented in this encounter [facility] note* Diagnosis Tachycardia- Primary Tachycardia, unspecified documented in this encounter [facility] for visit Narrative* Diagnostic Procedure Only (Routine) - Closed Specialty Diagnoses / Procedures Referred By Contac t Referred To Contact [facility] Diagnoses Abnormal uterine bleeding (AUB) Elevated testosterone level Procedures PELVIC US WHI US PELVIC NONOBSTETRIC REAL-TIME IMAGE COMPLETE Alicia Rehman MD [address] [place] [address] [facility] [address] [facility] [place] [address] Referral ID Status Reason Start Date Expiration Date V isits Requested Visits Authorized [id number] Closed Auto-Generate d Referral 01/30/2022 01/30/2023 1 1 [facility] Summary Purpose Family History No Family History Records FoundNo Family History Records Found Advance Directives No Advanced Directives Records FoundNo Advanced Directives Records Found Reason for Referral Specialty Diagnoses / Procedures Referred By Contac t Referred To Contact Endocrinology Diagnoses History of PCOS Elevated testosterone level Procedures CONSULT TO ENDOCRINOLOGY OFFICE/OUTPATIENT [facility] 60-74 MINUTES Alicia Rehman MD [address] [place] [address] Referral ID Status Reason Start Date Expiration Date Visits Requested Visits Authorized [id number] Authorized PCP Requested Referral 2 03/18/2023 1 1 Specialty Diagnoses / Procedures Referred By Contac t Referred To Contact Cardiology Diagnoses Tachycardia Procedures CONSULT TO CARDIOLOGY OFFICE/OUTPATIENT [facility] 60-74 MINUTES Katy Guillen, PRESSURE TESTER.[employer]ATIONS PROFESSOR [address] [place] [address] Referral ID Status Reason Start Date Expiration Date Visits Requested Visits Authorized [id number] Authorized PCP Requested Referral 05/31/2022 05/31/2023 1 1 Specialty Diagnoses / Procedures Referred By Contac t Referred To [facility] Diagnoses Tachycardia Procedures ECG COMPLETE ECG ROUTINE ECG W/LEAST 12 LDS W/I&R Katy Guillen, PRESSURE TESTER.RACE RELATIONS PROFESSOR [address] [place] [address] [facility] [address] [place] [address] Referral ID Status Reason Start Date Expiration Date V isits Requested Visits Authorized [id number] Closed Auto-Generated Referral Financial Clearance Not Required 05/31/2022 05/31/2023 1 1 Additional Source Comments INFORMATION SOURCE (unrecogn ized section and content) DATE CREATED AUTHOR AUTHOR'S ORGANIZ ATION 06/04/2022 [facility] Source Comments (unrecognize d section and content) In the event this informatio n is protected by the Federal Confidentiality of Alcohol and Drug Abuse Patient Records regulations: The Federal rules restrict any use of the information to criminally investigate or prosecute any alcohol or drug abuse patient.[facility] [place] event this information is protected by the Federal Confidentiality of Alcohol and Drug Abuse Patient Records regulations: The Federal rules restrict any use of the information to criminally investigate or prosecute any alcohol or drug abuse patient.[facility] event this information is protected by the Federal Confidentiality of Alcohol and Drug Abuse Patient Records regulations: The Federal rules restrict any use of the information to criminally investigate or prosecute any alcohol or drug abuse patient.[facility] event this information is protected by the Federal Confidentiality of Alcohol and Drug Abuse Patient Records regulations: The Federal rules restrict any use of the information to criminally investigate or prosecute any alcohol or drug abuse patient.[facility] event this information is protected by the Federal Confidentiality of Alcohol and Drug Abuse Patient Records regulations: The Federal rules restrict any use of the information to criminally investigate or prosecute any alcohol or drug abuse patient.[facility] [place] event this information is protected by the Federal Confidentiality of Alcohol and Drug Abuse Patient Records regulations: The Federal rules restrict any use of the information to criminally investigate or prosecute any alcohol or drug abuse patient.[facility] the event this information is protected by the Federal Confidentiality of Alcohol and Drug Abuse Patient Records regulations: The Federal rules restrict any use of the information to criminally investigate or prosecute any alcohol or drug abuse patient.[facility] [place] the event this information is protected by the Federal Confidentiality of Alcohol and Drug Abuse Patient Records regulations: The Federal rules restrict any use of the information to criminally investigate or prosecute any alcohol or drug abuse patient.[facility] [place] the event this information is protected by the Federal Confidentiality of Alcohol and Drug Abuse Patient Records regulations: The Federal rules restrict any use of the information to criminally investigate or prosecute any alcohol or drug abuse patient.[facility] [place] the event this information is protected by the Federal Confidentiality of Alcohol and Drug Abuse Patient Records regulations: The Federal rules restrict any use of the information to criminally investigate or prosecute any alcohol or drug abuse patient.[facility] the event this information is protected by the Federal Confidentiality of Alcohol and Drug Abuse Patient Records regulations: The Federal rules restrict any use of the information to criminally investigate or prosecute any alcohol or drug abuse patient.[facility] Reason for Visit (unrecogniz ed section and content) Reason Comments Ear Pain Left x 1 day, sinus issue Reason Comments Obesity Polycystic Ovarian Syndrome New Patient Reason Comments heartrate-high Rapid Heart Beat Reason Comments Tachycardia Care Teams (unrecognized sec tion and content) Director Of Nurses Registry Relationship Specialty Start Date End Date Deshaun Bro MD [address] [place], [place] [id number] PCP - General Family Medicine 06/01/18 Director Of Nurses Registry Relationship Specialty Start Date End Date Deshaun Bro MD [address] [facility], [place] [id number] PCP - General Family Medicine 06/01/18 Director Of Nurses Registry Relationship Specialty Start Date End Date Deshaun Bro MD [address] [place] [address] PCP - General Family [facility] 06/01/18 Director Of Nurses Registry Relationship Specialty Start Date End Date Deshaun Bro MD [address] [facility], [place] [id number] PCP - General [facility] 06/01/18 Director Of Nurses Registry Relationship Specialty Start Date End Date Deshaun Bro MD [address] [facility], [place] [id number] PCP - General Family [facility] 06/01/18 FOR RECORDS PERTAINING TO PATIENTS WHO ARE OR HAVE BEEN ENROLLED IN A CHEMICAL DEPENDENCY/SUBSTANCEABUSE PROGRAM, SOME INFORMATION MAY BE OMITTED. This clinical summary was aggregated from multiple sources. Caution should be exercised in using it in the provision of clinical care. This summary normalizes information from multiple sources, and as a consequence, information in this document may materially change the coding, format and clinical context of patient data. In addition, data may be omitted in some cases. CLINICAL DECISIONS SHOULD BE BASED ON THE PRIMARY CLINICAL RECORDS. [facility] [employer] [facility]. provides no warranty or guarantee of the accuracy or completeness of information in this document.
--- NOTE | 2023-06-14 11:26 | US_ITS ---
EXAM: US ABDOMEN LIMITED CLINICAL INDICATION: lump/soft mass to RLQ TECHNIQUE: Real-time ultrasound of the soft tissues of the abdomen with image documentation. COMPARISON: No relevant prior studies available. FINDINGS: SOFT TISSUES: Well-defined solid tissue nodule density noted within the subcutaneous tissues of the right lower quadrant measuring 2.5 x 2.1 x 1.2 cm possibly representing a lipoma. 2 adjacent similar appearing structures measuring 1.2-1.3 cm in maximum diameter may also represent lipomas. Follow-up CT study may be confirmatory. US/Abdomen Limited IMPRESSION: As above. Electronically Signed: Craig Samaniego MD at 9:46 EST ,
== END | disposition home or self-care (01) ==
PROVIDERS: PCP Internal Medicine; Referring Provider Nurse Practitioner; Visit Provider Nurse Practitioner
DX: R19.03 Right lower quadrant abdominal swelling, mass and lump (principal)
CPT/HCPCS: 76705

== ENCOUNTER → 2023-10-29 | Outpatient (CLI) | payer BC, SELFPAY ==
[2023-10-29 12:20] LABS: ALB/GLOB Ratio 1.1 RATIO (0.9-2.4); AST(SGOT) 21 U/L (15-37); Alanine Aminotransfer ALT/SGPT 25 U/L (13-56); Albumin, Serum 3.8 g/dL (3.2-5.0); Alkaline Phosphatase 62 U/L (45-117); Anion Gap 6 (5-15); BUN 14 mg/dL (7-18); Calcium,Total 9.1 mg/dL (8.5-10.1); Chloride 106 mmol/L (98-107); Creatinine, Serum 0.74 mg/dL (0.55-1.02); EST Glomerular Filtration Rate 100 mL/min (>60); Est Glom Filt Rate - Afr Amer 121 mL/min (>60); Globulin 3.6 g/dL (2.2-4.2); Glucose 81 mg/dL (74-106); Potassium 4.2 mmol/L (3.5-5.1); Protein, Total 7.4 g/dL (6.4-8.2); Sodium Level 138 mmol/L (136-145)
[2023-10-29 12:26] LABS: Absolute Lymphocyte Count 1.61 X10^3/uL (0.83-4.51); Basophil# 0.04 X10^3/uL; Basophil% 0.6 % (0-1); Hemoglobin 14.5 g/dL (12.0-15.0); Lymphocyte # 1.61 X10^3/ul (0.83-4.51); Lymphocyte % 25.8 % (19-41); Mean Corp Hgb Conc 32.2 g/dL (32-36); Mean Corpuscular Hgb 26.8 pg (27.0-32.0); Mean Corpuscular Volume 83.2 fL (81-99); Mean Platelet Vol. 9.2 fl (6.2-12.0); Monocyte# 0.58 X10^3/uL; Monocyte% 9.3 % (0-10); NRBC Flagged by Analyzer 0 % (0-5); Neutrophil % 64.1 % (47-70); Platelet Count 299 K/mm3 (150-450); RBC Distribution Width CV 13.8 % (11.6-14.6); RBC Distribution Width SD 41.9 fl (35.1-43.9); Red Blood Count 5.41 M/mm3 (4.2-5.4); White Blood Count 6.2 K/mm3 (4.4-11.0)
== END | disposition home or self-care (01) ==
LOC: BIMLAB 09:52
PROVIDERS: PCP Internal Medicine; Referring Provider Internal Medicine; Visit Provider Internal Medicine
DX: E28.2 Polycystic ovarian syndrome (principal); E66.9 Obesity, unspecified
CPT/HCPCS: 36415; 80053; 85025

== ENCOUNTER → 2024-05-25 | Outpatient (CLI) | payer BC, SELFPAY ==
[2024-05-25 12:25] LABS: Absolute Lymphocyte Count 1.74 X10^3/uL (0.83-4.51); Absolute Neutrophil Count 3.6 X10^3/uL (2.0-7.7); Basophil# 0.05 X10^3/uL; Basophil% 0.8 % (0-1); Eosinophil# 0.04 X10^3/uL; Eosinophils% 0.7 % (0-5); Hemoglobin 13.8 g/dL (12.0-15.0); Lymphocyte # 1.74 X10^3/ul (0.83-4.51); Mean Corp Hgb Conc 32.1 g/dL (32-36); Mean Corpuscular Hgb 26.8 pg (27.0-32.0); Mean Corpuscular Volume 83.5 fL (81-99); Mean Platelet Vol. 9.1 fl (6.2-12.0); Monocyte# 0.53 X10^3/uL; Monocyte% 8.8 % (0-10); NRBC Flagged by Analyzer 0 % (0-5); Neutrophil # 3.61 X10^3/uL (2.7-7.7); Neutrophil % 60.4 % (47-70); Platelet Count 312 K/mm3 (150-450); RBC Distribution Width CV 13.4 % (11.6-14.6); RBC Distribution Width SD 41.1 fl (35.1-43.9); Red Blood Count 5.15 M/mm3 (4.2-5.4)
[2024-05-25 12:27] LABS: ALB/GLOB Ratio 0.9 RATIO (0.9-2.4); AST(SGOT) 18 U/L (15-37); Alanine Aminotransfer ALT/SGPT 29 U/L (13-56); Albumin, Serum 3.5 g/dL (3.2-5.0); Alkaline Phosphatase 60 U/L (45-117); Anion Gap 8 (5-15); BUN 16 mg/dL (7-18); Calcium,Total 8.8 mg/dL (8.5-10.1); Chloride 107 mmol/L (98-107); Cholesterol 104 mg/dL (200); Creatinine, Serum 0.84 mg/dL (0.55-1.02); EST Glomerular Filtration Rate 86 mL/min (>60); Est Glom Filt Rate - Afr Amer 104 mL/min (>60); Globulin 3.7 g/dL (2.2-4.2); Glucose 78 mg/dL (74-106); High Density Lipoprotein 54 mg/dL; Potassium 3.8 mmol/L (3.5-5.1); Protein, Total 7.2 g/dL (6.4-8.2); Sodium Level 139 mmol/L (136-145); Triglycerides 88 mg/dL; Very Low Density Lipoprotein 18 mg/dL (5-40)
== END | disposition home or self-care (01) ==
LOC: BIMLAB 08:03
PROVIDERS: PCP Internal Medicine; Visit Provider Internal Medicine
DX: E66.9 Obesity, unspecified (principal)
CPT/HCPCS: 36415; 80053; 80061; 85025

== ENCOUNTER → 2024-08-24 | Outpatient (CLI) | payer BC, SELFPAY ==
[2024-08-28 07:56] LABS: HPV Reflexed? NOT INDICATED
== END | disposition home or self-care (01) ==
LOC: LABSPEC 17:05
PROVIDERS: PCP Internal Medicine; Referring Provider Obstetrics & Gynecology; Visit Provider Obstetrics & Gynecology
DX: Z12.4 Encounter for screening for malignant neoplasm of cervix (principal)
CPT/HCPCS: 88175; G0145